=== PATIENT | female | born 1945 | race Asian ===

== ENCOUNTER → 2017-10-15 | Day surgery (SDC) | payer OTHER ==
--- NOTE | 2017-10-16 10:47 | PATH ---
Surgical Pathology Report Patient Name: YUMIKO GARCIA [facility]. Rec. #: [id number] /Age/Gender: 1945 (Age: 71) / F Account: [id number] Location: [facility] Taken: 10/15/2017 Received: 10/15/2017 Reported: 10/16/2017 Physicians: Cholo Granados M.D. Specimen(s) Received A: RIGHT BREAST BIOPSY WITH CALCIFICATIONS B: RIGHT BREAST BIOPSY WITHOUT CALCIFICATIONS Clinical History Nonpalpable lesion Mammograph findings: Microcalcification, suspicious Final Diagnosis A. BREAST, RIGHT, WITH CALCIFICATIONS, STEREOTACTIC CORE BIOPSY: DUCTAL CARCINOMA IN SITU, SOLID AND CRIBRIFORM TYPE, LOW NUCLEAR GRADE WITH ASSOCIATED MICROCALCIFICATIONS. B. BREAST, RIGHT, WITHOUT CALCIFICATIONS, STEREOTACTIC CORE BIOPSY: BREAST TISSUE WITH FOCAL STROMAL FIBROSIS AND MICROCALCIFICATIONS WITHIN BENIGN DUCTS. Comment: Part A, Breast prognostic markers are pending and will be reported as an addendum. Electronically Signed Radha Wellington M.D. Addendum Reported: 10/20/2017 Addendum Diagnosis Results of Estrogen Receptor (ER) and Progesterone Receptor (NC) studies performed on block "1" at [facility] are as follows: ER (clone [id number] mouse monoclonal antibody by Leica):90% nuclear staining with strong intensity (Positive). NC (clone16 mouse monoclonal antibody by Leica): up to 40% nuclear staining with moderate to strong intensity (Positive). Positive and negative controls (internal if applicable) show appropriate results. Formalin fixation and cold ischemic times are within current ASCO/CAP recommendations for ER, NC and Her2 testing. Radha Wellington M.D. Gross Description A. Received in formalin labeled "right breast with calcifications," are 3 chiang-yellow, cylindrical portions of fibroadipose tissue ranging from 1.5-3.4 cm in length and averaging 0.2 cm in diameter. The specimens are submitted in toto in one cassette. B. Received in formalin labeled "right breast without calcifications," is a 2.2 x 2.1 x 0.3 cm aggregate of multiple chiang-yellow, irregular to cylindrical portions of fibroadipose tissue. The formalin is filtered and the specimen is entirely submitted in one cassette. Time to formalin fixation: 5 minutes Total formalin fixation time: Approximately 8 hours. 10/15/201710/15/2017
== END | disposition home or self-care (01) ==
LOC: FMAMMOTONE 09:22
PROVIDERS: ATTEND Internal Medicine Endocrinology, Diabetes & Metabolism
PROC: 0HBT3ZX Excision of Right Breast, Percutaneous Approach, Diagnostic (ICD-10-PCS; principal; 2017-10-15)
DX: C50.411 Malignant neoplasm of upper-outer quadrant of right female breast (principal); R92.1 Mammographic calcification found on diagnostic imaging of breast; N60.31 Fibrosclerosis of right breast; N64.89 Other specified disorders of breast
CPT/HCPCS: 19081; 87899; 88305-TC; 88341-TC; 88342-TC; A4648

== ENCOUNTER 2017-12-01 06:56 | Day surgery (SDC) | payer OTHER ==
--- NOTE | 2017-11-23 14:07 | HP ---
Admitting History and Physical - Primary Care Physician PCP: Claudia Hugo - Admission Chief Complaint: right breast cancer History of Present Illness: 72 yo female noted to have right breast UOQ calcifications on screening mammo ( 08/2017). Right stereo core bx was c/w low grade ER/CO + DCIS. Patient is now presenting for right breast WE with NL. History Source: Patient Limitations to Obtaining History: No Limitations - Past Medical History Cardiovascular: Yes: HTN Musculoskeletal: Yes: Other (Gout) Endocrine: Yes: Hypothyroidism Home Medications - Allergies Allergies/Adverse Reactions: Allergies Allergy/AdvReac Type Severity Reaction Status Date / Time streptomycin Allergy Verified 11/23/17 14:05 - Home Medications Home Medications (free text): amlodipine. atorvastatin. levothyroxin. allopurinol. propanolol. Vitamin B Family Disease History - Family Disease History Family Disease History: CA: Sister (thyroid cancer at 60), Daughter (uterine cancer at 47) Other Family History: paternal cousin brest cancer at 50 Review of Systems - Review of Systems Constitutional: reports: Other (fatigue and insomnia) Musculoskeletal: reports: Back Pain, Muscle Pain, Other (neck pain) Physical Examination Constitutional: Yes: Well Nourished Cardiovascular: Yes: WNL Respiratory: Yes: WNL Breast(s): Yes: Other (symmetrical and diffusely nodular without palpable masses or suspicious adenopathy noted bilaterally) Problem List - Problems (1) Breast cancer, right Code(s): C50.911 - MALIGNANT NEOPLASM OF UNSP SITE OF RIGHT FEMALE BREAST Qualifiers: Breast location: upper outer quadrant of breast Estrogen receptor status: positive Patient sex: female Qualified Code(s): C50.411 - Malignant neoplasm of upper-outer quadrant of right female breast; Z17.0 - Estrogen receptor positive status [ER+]; Z17.0 - Estrogen receptor positive status [ER+] Assessment/Plan Plan: right breast WE with NL
[2017-12-01 08:32] VITALS: BMI 19.3
[2017-12-01] MEDS ORDERED: BUPIVACAINE HCL/PF 2.5 MG/ML - 30 ML VIAL IJ ONE (10:19)
[2017-12-01] MEDS ORDERED: LIDOCAINE HCL 1%, 10 MG/ML (20ML VIAL) ONE (10:19)
[2017-12-01] MEDS ORDERED: ONDANSETRON 4 MG/2 ML VIAL IVPUSH PRN (11:42)
[2017-12-01] MEDS ORDERED: KETOROLAC TROMETHAMINE 30 MG/1 ML VIAL IVPUSH PRN (11:42)
[2017-12-01] MEDS ORDERED: DEXTROSE 5%-0.45% SALINE 1,000 ML IV SCH (11:45)
[2017-12-01] MEDS ORDERED: oxyCODONE HCL 5 MG TABLET PO PRN (11:48)
[2017-12-01] MEDS ORDERED: LACTATED RINGERS SOLUTION 1,000 ML IV SCH (12:00)
[2017-12-01] MEDS ORDERED: ONDANSETRON 4 MG/2 ML VIAL ONE ×2 (12:10→18:41)
[2017-12-01] MEDS ORDERED: KETOROLAC TROMETHAMINE 30 MG/1 ML VIAL ONE (12:10)
--- NOTE | 2017-12-01 13:13 | OP ---
DATE OF OPERATION: 12/01/2017 PREOPERATIVE DIAGNOSIS: Right breast ductal carcinoma in situ. POSTOPERATIVE DIAGNOSIS: Right breast ductal carcinoma in situ. PROCEDURE: Mammographically localized partial mastectomy with complex tissue transfer. ANESTHESIA: General intubated. ATTENDING SURGEON: Morena Hugo MD ONCOLOGY PHYSICIAN ASSISTANT: DOMINGA Morgan ESTIMATED BLOOD LOSS: Minimal. COMPLICATIONS: None. DESCRIPTION OF PROCEDURE: Patient was made aware of the risks and benefits of the procedure. Preoperatively, the patient went to the radiology suite where a needle was placed next to the index lesion. Patient was then placed in the supine position on the operating room table, and after general anesthesia was induced, the patient was intubated. The operative site was prepped and draped in usual sterile fashion. Next, 1% lidocaine mixed in a 1:1 ratio with 0.25% bupivacaine without epinephrine was used for preemptive anesthesia. A curvilinear para-areolar incision was made at approximately 12 o'clock. Using electrocautery, thick skin flaps were made to the needle. The needle was withdrawn through the puncture site and a wire through the wound. Tissues around the wire were then sharply excised and submitted with a short suture superior, long suture lateral. Specimen radiograph confirmed the presence of the index lesion. Additional segments were taken superior, inferior, medial, lateral, deep, and anterior with clips at the new margins. Using electrocautery, the breast tissue was taken off the pectoralis muscle and approximately 6-8 cm in each direction and rotated into the defect which was then closed with multiple layers of figure-of-8 suture of 2-0 Vicryl in a scaffolding-type fashion. Skin was then closed with deep 3-0 Vicryl, followed by running subcuticular 4-0 Monocryl. Steri-Strips and a sterile bandage were then applied as well as a compression bra. The patient, having tolerated the procedure well, was transferred to recovery room in excellent condition. MORENA HUGO M.D. [id number]
[2017-12-01] MEDS ORDERED: ACETAMINOPHEN 325 MG TABLET (FP) PO ONE (13:25)
[2017-12-01] MEDS ORDERED: PROPOFOL 20 ML ONE (17:44)
[2017-12-01] MEDS ORDERED: MIDAZOLAM HCL 2 MG/2 ML SINGLE DOSE VIAL ONE (17:46)
[2017-12-01] MEDS ORDERED: PHENYLEPHRINE HCL 10 MG/1 ML SINGLE DOSE VIAL ONE (18:08)
[2017-12-02 06:34] VITALS: BP 104/50; PULSE 84; TEMP 98.1
--- NOTE | 2017-12-02 07:49 | OP ---
DATE OF OPERATION: 12/01/2017 PREOPERATIVE DIAGNOSIS: Right breast postoperative hematoma. POSTOPERATIVE DIAGNOSIS: Right breast postoperative hematoma. PROCEDURE: Evacuation of hematoma. ANESTHESIA: General intubated. ATTENDING SURGEON: Claudia Hugo MD ESTIMATED BLOOD LOSS: Minimal. COMPLICATIONS: None. DESCRIPTION OF PROCEDURE: Patient was made aware of the risks and benefits of the procedure and consented. She was placed in the supine position. After general anesthesia was induced, the patient was intubated. The operative site was prepped and draped in the usual sterile fashion. The prior incisions were cut, and the wound opened, revealing copious amounts of clotted blood. This was all evacuated directly and through irrigation. There was no obvious bleeding source, and small bleeding areas were cauterized throughout the wound. When the area was completely dry with no more bleeding, the prior reconstruction was reapposed with 2-0 Vicryl sutures followed by deep dermal 3-0 interrupted Vicryl sutures followed by running subcuticular 4-0 Monocryl. Steri-Strips, sterile dressings, and 2 David wraps were applied. The patient having tolerated the procedure was extubated and transferred to the recovery room in excellent condition. CLAUDIA HUGO M.D. [id number]
--- NOTE | 2017-12-02 09:35 | PN ---
Progress Note, Physician Chief Complaint: Right breast DCIS S/P wide excision with re excision from hematoma POD #1 History of Present Illness: Patient has some pain from evacuated hematoma , binder and wrap on, some indigestion after eating and nausea but resolved with zofran.Ready for discharge later after social service evaluation. vital signs stable - Current Medication List Current Medications: Active Medications Dextrose/Sodium Chloride (D5-1/2ns -) 1,000 mls @ 100 mls/hr IV ASDIR HILARIO Lactated Ringer's (Lactated Ringers Solution) 1,000 mls @ 125 mls/hr IV ASDIR HILARIO Ketorolac Tromethamine (Toradol Injection -) 30 mg IVPUSH ONCE PRN PRN Reason: PAIN Stop: 12/06/17 11:41 Last Admin: 12/01/17 12:12 Dose: 30 mg Ondansetron HCl (Zofran Injection) 4 mg IVPUSH Q6H PRN PRN Reason: NAUSEA AND/OR VOMITING Last Admin: 12/01/17 12:12 Dose: 4 mg Oxycodone HCl (Roxicodone -) 5 mg PO Q4H PRN PRN Reason: Pain Level > 4 - Objective Vital Signs: Vital Signs Temperature 98.1 F 12/02/17 06:32 Pulse Rate 84 12/02/17 06:32 Respiratory Rate 18 12/02/17 06:32 Blood Pressure 104/50 12/02/17 06:32 O2 Sat by Pulse Oximetry (%) 98 12/02/17 06:32 Constitutional: Yes: Anxious Breast(s): Yes: Other (Right breast incision intact some tenderness minimal echymosis right breast and axilla minimal swelling) Problem List - Problems (1) Breast cancer, right Code(s): C50.911 - MALIGNANT NEOPLASM OF UNSP SITE OF RIGHT FEMALE BREAST Qualifiers: Breast location: upper outer quadrant of breast Estrogen receptor status: positive Patient sex: female Qualified Code(s): C50.411 - Malignant neoplasm of upper-outer quadrant of right female breast; Z17.0 - Estrogen receptor positive status [ER+]; Z17.0 - Estrogen receptor positive status [ER+] Assessment/Plan patient discharge today social service evaluation tylenol prn follow up thursday for wound check
[2017-12-02] MEDS ORDERED: ACETAMINOPHEN 325 MG TABLET (FP) PO ONE (10:00)
--- NOTE | 2017-12-04 13:37 | PATH ---
Surgical Pathology Report Patient Name: YUMIKO GARCIA [facility]. Rec. #: [id number] /Age/Gender: 1945 (Age: 72) / F Account: [id number] Location: [facility] Taken: 12/01/2017 Received: 12/01/2017 Reported: 12/04/2017 Physicians: Claudia Hugo M.D. Specimen(s) Received A: RIGHT BREAST WIDE EXCISION B: RIGHT BREAST DEEP MARGIN C: RIGHT BREAST SUPERIOR MARGIN D: RIGHT BREAST MEDIAL MARGIN E: RIGHT BREAST INFERIOR MARGIN F: RIGHT BREAST LATERAL MARGIN G: RIGHT BREAST ANTERIOR MARGIN Clinical History DCIS Final Diagnosis A. BREAST, RIGHT, WIDE EXCISION: DUCTAL CARCINOMA IN SITU (DCIS), CRIBRIFORM AND SOLID TYPE, LOW NUCLEAR GRADE WITH FOCAL NECROSIS AND ASSOCIATED CALCIFICATIONS. DCIS IS PRESENT IN TWO OF SEVEN SLIDES (2/7), WITH THE LARGEST CONTIGUOUS FOCUS OF DCIS MEASURING 4 MM IN GREATEST DIMENSION, MICROSCOPICALLY. SURGICAL MARGINS ARE UNINVOLVED BY DCIS; DCIS IS AT 4 MM FROM THE CLOSEST (LATERAL) MARGIN. SEE SPECIMENS B-G FOR FINAL MARGINS. PRIOR BIOPSY SITE CHANGES ARE PRESENT. PATHOLOGIC STAGE (PTNM): pTis (DCIS) pNx. B. BREAST, RIGHT, DEEP MARGIN, EXCISION: FOCAL ATYPICAL DUCTAL HYPERPLASIA (ADH). C. BREAST, RIGHT, SUPERIOR MARGIN, EXCISION: BENIGN BREAST TISSUE. D. BREAST, RIGHT, MEDIAL MARGIN, EXCISION: BENIGN BREAST TISSUE. E. BREAST, RIGHT, INFERIOR MARGIN, EXCISION: BENIGN BREAST TISSUE. F. BREAST, RIGHT, LATERAL MARGIN, EXCISION: BENIGN BREAST TISSUE. G. BREAST, RIGHT, ANTERIOR MARGIN, EXCISION: BENIGN BREAST TISSUE. Comments DCIS of the Breast: Surgical Pathology Cancer Case Summary (Based on AJCC TNM 8 th edition) Procedure _X_ Excision (less than total mastectomy) Specimen Laterality _X_ Right Size (Extent) of DCIS Estimated size (extent) of DCIS (greatest dimension using gross and microscopic evaluation): at least (millimeters) 4 mm Number of blocks with DCIS: 2 Number of blocks examined: 23 (based on specimens A-G) Histologic Type _X_ Ductal carcinoma in situ Architectural Patterns _X_ Cribriform _X_ Solid Nuclear Grade _X_ Grade I (low) Necrosis _X_ Present, focal (small foci or single cell necrosis) Margins _X_ Uninvolved by DCIS Distance from closest margin (millimeters): 4 mm from lateral margin in wide excision A. Final lateral margin F is negative for DCIS. Regional Lymph Nodes _X_ No lymph nodes submitted or found Pathologic Stage Classification (pTNM, AJCC 8th Edition) Primary Tumor (pT) _X_ pTis (DCIS): Ductal carcinoma in situ (pN) : _X_ pNx Microcalcifications _X_ Present in DCIS _X_ Present in nonneoplastic tissue Biomarker studies Results of ER and PA studies performed on prior specimen () at [facility] are as follows: ER (clone [id number] mouse monoclonal antibody by Leica): 90 % nuclear staining with strong intensity (Positive). PA (clone16 mouse monoclonal antibody by Leica): 40 % nuclear staining with moderate to strong intensity (Positive). Electronically Signed Michela Julio M.D. Gross Description A. Received in formalin, labeled "right breast wide excision," is a 4.7 x 3.1 x 3.0 cm. chiang-yellow, irregular, portion of fibroadipose tissue with a needle localization wire present. There is a short suture marking the superior aspect and a long suture marking the lateral aspect, per the surgeon. There is no skin or nipple present. The specimen is inked as follows: Superior blue; inferior green; anterior and lateral red; medial yellow; deep black. The specimen is serially sectioned from anterior to deep. Sectioning reveals a 1.5 x 1.4 x 1.2 cm ill-defined focus of firm fibrous tissue 0.3 cm from the lateral margin, 0.6 cm from the inferior margin and 0.8 cm from the medial margin. Investigator Operator sections are submitted in 7 cassettes as follows: 1-4-fibrous tissue sequentially submitted from anterior to deep (each with lateral, medial and inferior margins); 5-superior margin; 6-anterior margin; 7-deep margin. Time to formalin fixation: 5 minutes Total formalin fixation time: Approximately 31 hours. B. Received in formalin labeled "right breast deep margin," is a 3.2 x 2.2 x 1.9 cm irregular portion of fibroadipose tissue with a clip marking the new margin, per the surgeon. The new margin is inked blue and the specimen is serially sectioned. The specimen is entirely and sequentially submitted in 4 cassettes. C. Received in formalin labeled "right breast superior margin," is a 2.5 x 1.9 x 0.7 cm irregular portion of fibroadipose tissue with a clip marking the new margin, per the surgeon. The new margin is inked blue and the specimen is serially sectioned. The specimen is entirely submitted in 3 cassettes. D. Received in formalin labeled "right breast medial margin," is a 2.0 x 1.4 x 0.5 cm irregular portion of fibroadipose tissue with a clip marking the new margin, per the surgeon. The new margin is inked blue and the specimen is serially sectioned. The specimen is entirely submitted in 2 cassettes. E. Received in formalin labeled "right breast inferior margin," is a 2.7 x 1.5 x 0.3 cm irregular portion of fibroadipose tissue with a clip marking the new margin, per the surgeon. The new margin is inked blue and the specimen is serially sectioned. The specimen is entirely submitted in 3 cassettes. F. Received in formalin labeled "right breast lateral margin," is a 2.5 x 1.0 x 0.3 cm irregular portion of fibroadipose tissue with a clip marking the new margin, per the surgeon. The new margin is inked blue and the specimen is serially sectioned. The specimen is entirely submitted in 2 cassettes. G. Received in formalin labeled "right breast anterior margin" and a 2.0 x 1.3 x 0.5 cm irregular portion of fibroadipose tissue with a clip marking the new margin, per the surgeon. The new margin is inked blue and the specimen is serially sectioned. The specimen is entirely submitted in 2 cassettes. 12/02/2017 saudi12/02/2017
== END 2017-12-02 12:18 | disposition home or self-care (01) ==
LOC: FASU 06:56 → FM/S 20:47 → FASU 12-02 12:18
PROVIDERS: ATTEND Surgery Surgical Oncology
PROC: 0H9T0ZZ Drainage of Right Breast, Open Approach (ICD-10-PCS; 2017-12-01)
PROC: 0HBT0ZZ Excision of Right Breast, Open Approach (ICD-10-PCS; principal; 2017-12-01 10:00)
DX: D05.11 Intraductal carcinoma in situ of right breast (principal); L76.32 Postprocedural hematoma of skin and subcutaneous tissue following other procedure; N64.89 Other specified disorders of breast
CPT/HCPCS: 19281; 82962; 88307-TC; 94760

== ENCOUNTER 2018-12-27 15:35 | Observation (INO) | payer MEDICARE, OTHER ==
[2018-12-27 16:35] LABS: URINE APPEARANCE Clear; URINE BILIRUBIN Negative (<2.0 mg/dL); URINE COLOR Yellow; URINE GLUCOSE (UA) Negative (NEGATIVE); URINE KETONE Negative (NEGATIVE); URINE LEUK ESTERASE Negative (NEGATIVE); URINE NITRITE Negative (NEGATIVE); URINE PROTEIN Negative (NEGATIVE); URINE UROBILINOGEN 0.2 mg/dL (0.2-1.0)
[2018-12-27] MEDS ORDERED: ACETAMINOPHEN 1000 MG/100 ML VIAL (NON FORMULARY) IVPB ONE (16:47)
--- NOTE | 2018-12-27 16:56 | PDOC ---
History of Present Illness - General History Source: Patient Exam Limitations: No Limitations - History of Present Illness Initial Comments: 12/27/18 16:49 73 yo F with a hx of DCIS ER/NV+ right breast s/p lumpectomy (11/2017) and radiation (02/2018; followed by Dr. Mohan), HTN, HLD, hypothyroidism, and osteoporosis presents to the emergency department by referral from Dr. Duran with left chest pain for 3 days. Per the patient, onset of pain began while walking. Described as sharp, comes and goes with pain random onset lasting less than an hour, relieves with sitting up, rated 6/10 in severity with radiation to the left shoulder and arm. Per the patient, she has never had this beforehand. Endorses the following concurrent symptoms: SOB, epigastric pain nausea, and generalized weakness. Denies hx of ID. Positive familial hx of ID in 84 year old father. Denies the following: fever, chills,ears/nose/throat pain , headaches, FND, dysuria, hematuria, diarrhea, hematochezia, and leg pain/ swelling. No recent travels, hx of PE/DVT. 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,HAS USED) Cancer: Yes (RIGHT BREAST) Cardiac Disorders: Yes (SOMETIMES C/O CHEST PAIN,SEEING DR DYKES 11/25/17) CVA: No COPD: No (INHALER 3 YRS AGO) CHF: No Dementia: No Diabetes: No (BORDERLINE) GI Disorders: Yes (STOMACH ULCER 20 YRS AGO) Disorders: No HTN: Yes Hypercholesterolemia: Yes Liver Disease: No (FATTY LIVER) Seizures: No Thyroid Disease: Yes (2003 TOTAL THYROIDECTOMY) - Surgical History Abdominal Surgery: Yes (ABD MYOMECTOMY) Appendectomy: No Cardiac Surgery: No Cholecystectomy: No Lung Surgery: No Neurologic Surgery: No Orthopedic Surgery: No - Suicide/Smoking/Psychosocial Hx Smoking History: Never smoked Have you smoked in the past 12 months: No Information on smoking cessation initiated: No Hx Alcohol Use: No Drug/Substance Use Hx: No Substance Use Type: None Hx Substance Use Treatment: No <Manuelito Iglesias - Last Filed: 12/28/18 10:54> <AldanaAmyKayla Renetta - Last Filed: 12/30/18 10:15> - Past Medical History Allergies/Adverse Reactions: Allergies Allergy/AdvReac Type Severity Reaction Status Date / Time streptomycin Allergy Severe Difficulty Verified 12/27/18 15:43 Breathing Home Medications: Ambulatory Orders Allopurinol [Zyloprim -] 100 mg PO DAILY 12/28/18 Amlodipine Besylate [Norvasc -] 5 mg PO DAILY 12/28/18 Levothyroxine [Synthroid -] 50 mcg PO DAILY 12/28/18 Propranolol HCl [Inderal Xl] 120 mg PO DAILY 12/28/18 Simvastatin [Zocor] 10 mg PO HS 12/28/18 metFORMIN HCL [Metformin HCl] 500 mg PO ASDIR 12/28/18 Review of Systems - Review of Systems Able to Perform ROS?: Yes Is the patient limited Romansh proficient: No Constitutional: Yes: Weakness. No: Chills, Diaphoresis, Fever HEENTM: No: Eye Pain, Recent change in vision, Nose Pain, Throat Pain, Mouth Pain Respiratory: Yes: Shortness of Breath. No: Cough, Productive cough Cardiac (ROS): Yes: Chest Pain. No: Lightheadedness, Palpitations, Syncope, Chest Tightness ABD/GI: Yes: Nausea, Poor Appetite. No: Constipated, Diarrhea, Vomiting : No: Hematuria Musculoskeletal: No: Back Pain, Joint Pain, Muscle Pain, Neck Pain Integumentary: No: Erythema, Rash Neurological: No: Headache, Numbness, Tingling, Tremors, Dizziness Psychiatric: No: Change in Appetite Endocrine: No: Unexplained Weight Gain Hematologic/Lymphatic: No: Anemia <Manuelito Iglesias - Last Filed: 12/28/18 10:54> *Physical Exam - Vital Signs Last Vital Signs Temp Pulse Resp BP Pulse Ox 98.7 F 87 18 141/58 L 100 12/27/18 15:44 12/27/18 15:44 12/27/18 15:44 12/27/18 15:44 12/27/18 15:44 - Physical Exam General Appearance: Yes: Nourished, Appropriately Dressed, Thin. No: Apparent Distress, Intoxicated, Cachetic HEENT: positive: EOMI, DAWN, Normal Voice, Symmetrical, Pharynx Normal, Hearing Grossly Normal. negative: Pale Conjunctivae, Scleral Icterus (R), Scleral Icterus (L), Muffled/Hoarse voice, Pharyngeal Erythema, Tonsillar Exudate, Tonsillar Erythema, Excessive drooling Neck: positive: Trachea midline, Supple. negative: Tender, Lymphadenopathy (R) , Lymphadenopathy (L), Tender lateral, Tender midline Respiratory/Chest: positive: Lungs Clear, Normal Breath Sounds. negative: Chest Tender, Respiratory Distress, Accessory Muscle Use, Stridor, Wheezing, Hyperresonant Cardiovascular: positive: Regular Rhythm, Regular Rate, S1, S2. negative: Systolic Murmur Gastrointestinal/Abdominal: positive: Normal Bowel Sounds, Tender (epigastric region), Flat, Soft. negative: Guarding, Rebound Musculoskeletal: positive: Normal Inspection. negative: CVA Tenderness, Vertebral Tenderness Extremity: positive: Normal Capillary Refill, Normal Inspection, Normal Range of Motion. negative: Tender Integumentary: positive: Normal Color, Dry, Warm. 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 NML intact, Fully Oriented, Alert, Normal Mood/ Affect, Normal Response, Motor Strength 5/5 <Manuelito Iglesias - Last Filed: 12/28/18 10:54> - Vital Signs Last Vital Signs Temp Pulse Resp BP Pulse Ox 99.0 F 92 H 20 118/64 98 12/29/18 15:08 12/29/18 15:08 12/29/18 15:08 12/29/18 15:08 12/29/18 04:00 <Kayla Aldana - Last Filed: 12/30/18 10:15> Moderate Sedation - Procedure Monitoring Vital Signs: Procedure Monitoring Vital Signs Temperature 98.7 F 12/27/18 15:44 Pulse Rate 87 12/27/18 15:44 Respiratory Rate 18 12/27/18 15:44 Blood Pressure 141/58 L 12/27/18 15:44 O2 Sat by Pulse Oximetry (%) 100 12/27/18 15:44 <Manuelito Iglesias - Last Filed: 12/28/18 10:54> - Procedure Monitoring Vital Signs: Procedure Monitoring Vital Signs Temperature 99.0 F 12/29/18 15:08 Pulse Rate 92 H 12/29/18 15:08 Respiratory Rate 20 12/29/18 15:08 Blood Pressure 118/64 12/29/18 15:08 O2 Sat by Pulse Oximetry (%) 98 12/29/18 04:00 <KatyaKayla Jackson - Last Filed: 12/30/18 10:15> Heart Score/ECG Review - History History: Slightly suspicious - Electrocardiogram EKG: Normal - Age Age: >/= 65 - Risk Factors Risk Factors Heart Score: Yes Hx Hypercholesterolemia, Yes Hx Hypertension, Yes Hx Diabetes Based on the list above the patient has:: >/=3 risk factors or Hx atherosclerotic disease - Troponin Troponin: </= normal limit - Score Heart Score - Total: 4 <Manuelito Iglesias - Last Filed: 12/28/18 10:54> ED Treatment Course - LABORATORY CBC & Chemistry Diagram: 12/28/18 06:00 12/28/18 06:45 - ADDITIONAL ORDERS Additional order review: Laboratory Results 12/27/18 16:03 Urine Color Yellow Urine Appearance Clear Urine pH 8.0 D Ur Specific [place] 1.010 Urine Protein Negative Urine Glucose (UA) Negative Urine Ketones Negative Urine Blood 1+ H Urine Nitrite Negative Urine Bilirubin Negative Urine Urobilinogen 0.2 Ur Leukocyte Esterase Negative - RADIOLOGY Radiology Studies Ordered: Category Date Time Status CHEST PA & LAT [RAD] Stat Radiology 12/27/18 16:47 Ordered <Manuelito Iglesias - Last Filed: 12/28/18 10:54> - LABORATORY CBC & Chemistry Diagram: 12/28/18 06:00 12/28/18 06:45 - ADDITIONAL ORDERS Additional order review: 12/27/18 16:03 Urine Culture - Final Urine - Urine Clean Catch NO GROWTH OBTAINED 12/27/18 17:14 RBC 4.25 MCV 93.4 MCHC 35.1 RDW 12.6 MPV 8.7 Neutrophils % 74.2 D Lymphocytes % 17.0 D Monocytes % 6.7 Eosinophils % 0.9 Basophils % 1.2 - Medications Given in the ED: ED Medications Discontinued Medications Generic Name Dose Route Start Last Admin Trade Name Freq PRN Reason Stop Dose Admin Acetaminophen 1,000 mg 12/27/18 16:47 12/27/18 17:22 Ofirmev Injection - IVPB 12/27/18 16:48 1,000 mg ONCE ONE Administration Al Hydroxide/Mg Hydroxide 30 ml 12/27/18 17:02 12/27/18 17:22 Mylanta Oral Suspension - PO 12/27/18 17:03 30 ml ONCE ONE Administration Allopurinol 100 mg 12/28/18 10:00 12/29/18 12:58 Zyloprim - PO 100 mg DAILY HILARIO Administration Amlodipine Besylate 5 mg 12/28/18 10:00 12/29/18 12:58 Norvasc - PO 5 mg DAILY HILARIO Administration Aspirin 162 mg 12/27/18 18:29 12/27/18 18:39 Asa - PO 12/27/18 18:30 Not Given ONCE ONE Aspirin 81 mg 12/28/18 10:00 12/29/18 12:58 Asa - PO 81 mg DAILY HILARIO Administration Atorvastatin Calcium 10 mg 12/28/18 22:00 12/28/18 22:28 Lipitor - PO 10 mg HS HILARIO Administration Cephalexin HCl 500 mg 12/27/18 18:31 12/27/18 18:40 Keflex - PO 12/27/18 18:32 500 mg ONCE ONE Administration Enoxaparin Sodium 40 mg 12/28/18 10:00 12/29/18 13:01 Lovenox - SQ Not Given DAILY [facility] Sodium Chloride 1,000 mls @ 1,000 mls/hr 12/27/18 17:01 12/27/18 17:22 Normal Saline - IV 12/27/18 18:00 1,000 mls/hr ASDIR STA Administration Famotidine/Sodium Chloride 20 mg in 50 mls @ 100 mls/hr 12/27/18 17:02 18:40 Pepcid 20 Mg Premixed Ivpb - IVPB 12/27/18 17:31 100 mls/hr ONCE ONE Administration Levothyroxine Sodium 50 mcg 12/28/18 07:00 12/29/18 06:26 Synthroid - PO 50 mcg DAILY@0700 HILARIO Administration Melatonin 5 mg 12/28/18 21:39 12/28/18 22:28 Melatonin PO 5 mg HS PRN Administration INSOMNIA Ondansetron HCl 4 mg 12/27/18 17:02 12/27/18 17:22 Zofran Injection IVPUSH 12/27/18 17:03 4 mg ONCE ONE Administration Propranolol HCl 120 mg 12/28/18 10:00 12/29/18 12:58 Inderal La - PO 120 mg DAILY HILARIO Administration <Kayla Aldana - Last Filed: 12/30/18 10:15> Medical Decision Making - Medical Decision Making 12/27/18 21:10 73 yo F with a hx of DCIS ER/NV+ right breast s/p lumpectomy (11/2017) and radiation (02/2018; followed by Dr. Mohan), HTN, HLD, hypothyroidism, and osteoporosis presents to the emergency department by referral from Dr. Duran with left chest pain for 3 days. Initial vitals Initial Vital Signs Temp Pulse Resp BP Pulse Ox 98.7 F 87 18 141/58 L 100 12/27/18 15:44 12/27/18 15:44 12/27/18 15:44 12/27/18 15:44 12/27/18 15:44 Work up: ddx: acs work up vs PNA vs PE (hx of cancer, describes pleuritic chest like pain left side, SOB, unable to assess with d-dimer given age, hx of CA), pericarditis (hx of radiation) Laboratory Tests 12/27/18 12/27/18 12/27/18 16:03 17:14 17:14 WBC 6.3 RBC 4.25 Hgb 13.9 Hct 39.7 MCV 93.4 MCH 32.8 MCHC 35.1 RDW 12.6 Plt Count 229 MPV 8.7 Absolute Neuts (auto) 4.6 Neutrophils % 74.2 D Lymphocytes % 17.0 D Monocytes % 6.7 Eosinophils % 0.9 Basophils % 1.2 Nucleated RBC % 0 Sodium 141 Potassium 3.8 Chloride 108 H Carbon Dioxide 26 Anion Gap 7 L BUN 15 Creatinine 0.5 L Creat Clearance w eGFR > 60 Random Glucose 108 H Calcium 9.5 Total Bilirubin 0.3 AST 25 ALT 35 Alkaline Phosphatase 96 Creatine Kinase 61 Troponin I < 0.02 Total Protein 7.4 Albumin 3.8 Lipase 237 Urine Color Yellow Urine Appearance Clear Urine pH 8.0 D Ur Specific [place] 1.010 Urine Protein Negative Urine Glucose (UA) Negative Urine Ketones Negative Urine Blood 1+ H Urine Nitrite Negative Urine Bilirubin Negative Urine Urobilinogen 0.2 Ur Leukocyte Esterase Negative Urine WBC (Auto) 0-3 Urine RBC (Auto) 0-3 Ur Epithelial Cells 1+ Urine Bacteria 1+ Urine Mucus 2+ CTA was negative for PE, infiltrates. EKG NSR without st elevation or depression. stress test and echo grossly within normal limits done 1-2 years ago. troponin x2 negative. the patient has symptomatic improvement but residual chest pain after having GI cocktail with tylenol and famotidine. nausea improved with zofran. patient was given keflex in the ED for bacteria in the urine in the setting of generalized weakness. the patient will be admitted for tele obs. Dispo: Admit to tele obs <Manuelito Iglesias - Last Filed: 12/28/18 10:54> *DC/Admit/Observation/Transfer <Manuelito Iglesias - Last Filed: 12/28/18 10:54> - Discharge Dispostion Decision to Admit order: Yes <Kayla Aldana - Last Filed: 12/30/18 10:15> Diagnosis at time of Disposition: Chest pain Qualifiers: Chest pain type: unspecified Qualified Code(s): R07.9 - Chest pain, unspecified - Discharge Dispostion Condition at time of disposition: Good
[2018-12-27] MEDS ORDERED: SODIUM CHLORIDE 1,000 ML IV STA (17:01)
[2018-12-27] MEDS ORDERED: ONDANSETRON 4 MG/2 ML VIAL IVPUSH ONE (17:02)
[2018-12-27] MEDS ORDERED: FAMOTIDINE 20 MG/50 ML IVPB 20 MG/50 ML MG IVPB ONE ×2 (17:02→17:10)
[2018-12-27] MEDS ORDERED: MAG HYDROX/AL HYDROX/SIMETH 30 ML UNIT-DOSE CUP PO ONE (17:02)
[2018-12-27] MEDS ORDERED: MAG HYDROX/AL HYDROX/SIMETH 30 ML UNIT-DOSE CUP ONE (17:10)
[2018-12-27] MEDS ORDERED: ACETAMINOPHEN INJECTION 100 ML IVPB ONE (17:10)
[2018-12-27] MEDS ORDERED: ONDANSETRON 4 MG/2 ML VIAL ONE (17:10)
[2018-12-27 17:31] LABS: BASO % 1.2 % (0-2.0); EOS % 0.9 % (0-4.5); HEMATOCRIT 39.7 % (32.4-45.2); HEMOGLOBIN 13.9 GM/dL (10.7-15.3); MCH 32.8 pg (25.7-33.7); MCHC 35.1 g/dl (32.0-36.0); MEAN CELL VOLUME 93.4 fl (80-96); MEAN PLT VOLUME 8.7 fl (7.5-11.1); MONO % 6.7 % (3.8-10.2); NEUT % 74.2 % (42.8-82.8); PLATELET COUNT 229 K/MM3 (134-434); RBC 4.25 M/mm3 (3.60-5.2); RDW 12.6 % (11.6-15.6); WHITE BLOOD COUNT 6.3 K/mm3 (4.0-10.0)
[2018-12-27 17:51] LABS: EPI CELLS 1+ /HPF (FEW)
[2018-12-27 17:52] LABS: URINE BACTERIA 1+ /hpf (NONE SEEN); URINE MUCUS 2+
[2018-12-27 18:16] LABS: ALBUMIN 3.8 g/dl (3.4-5.0); ALK PHOS 96 U/L (45-117); ANION GAP 7 MMOL/L (8-16); BILIRUBIN,TOTAL 0.3 mg/dL (0.2-1); BLOOD UREA NITROGEN 15 mg/dL (7-18); CALCIUM 9.5 mg/dL (8.5-10.1); CHLORIDE 108 mmol/L (98-107); CO2 26 mmol/L (21-32); CREATININE 0.5 mg/dL (0.55-1.3); GLUCOSE,RANDOM 108 mg/dL (74-106); LIPASE 237 U/L (73-393); POTASSIUM 3.8 mmol/L (3.5-5.1); SGOT/AST 25 U/L (15-37); SGPT/ALT 35 U/L (13-61); SODIUM 141 mmol/L (136-145); TOT PROT 7.4 g/dl (6.4-8.2)
--- NOTE | 2018-12-27 18:23 | PDOC ---
Attending Attestation - Resident Resident Name: KelsieManuelito - ED Attending Attestation I have performed the following: I have examined & evaluated the patient, The case was reviewed & discussed with the resident, I agree w/resident's findings & plan - HPI HPI: 12/27/18 18:24 73 yo F with a hx of DCIS ER/RI+ right breast s/p lumpectomy and radiation (2018), HTN, HLD, hypothyroidism, and osteoporosis presents to the emergency department with left chest pain for 3 days, with walking. described as sharp, intermittent, pleuritic (worse with breathing), lasting <1 hour, improved with sitting up. currently left lateral chest, worse with palpation as well, occasional radiation to the left shoulder and arm.. also endorses generalized weakness and malaise. no trauma or exertion. no other precipitating/alleviating factors Endorses the following concurrent symptoms: SOB, epigastric pain nausea, and generalized weakness. Denies hx of DE. Positive familial hx of DE in 84 year old father. no h/o DVT/PE. last chemo treatment 1 year ago, in remission. 12/27/18 18:26 12/27/18 18:29 12/27/18 18:32 - Physicial Exam PE: 12/27/18 18:26 NAD, well appearing, PERRL, EOMI, MMM, nl conjunctiva, anicteric; neck supple. lungs clear, RRR, left lateral chest wall Tenderness to palp. abdomen soft nontender. EDGE x4, no focal neuro deficits. No peripheral edema. normal color for ethnicity, WWP. no calf tenderness. - Medical Decision Making 12/27/18 18:26 See HPI for details DDx chest pain: ACS, coronary vasospasm, NSTEMI, arrhythmia, unstable angina, PE , dissection, PUD, esophageal spasm, GERD, gastritis, costochondritis, pneumonia , pleurisy, pericarditis/myocarditis. dehydration, electrolyte/metabolic derangements. Vital signs reviewed, wnl. mildly hypertensive, recheck Prior notes reviewed, including admissions, discharges and consultations. laboratory results and imaging reviewed, basic labs and lytes wnl, UA_with bacteria, epis/mucus, small wbcs - treat as possible UTI - keflex Cardiac panel_neg trop x1. EKG normal sinus rhythm at 87 bpm, no interval abnormalities, narrow QRS, ST and T wave segments and morphology normal. Nonspecific T wave abnormalities ED course: no acute events; GI cocktail attempted, ASA, analgesia and reassess. on monitor CTA to r/o PE with pleuritic cp - negative for PE, no other pathology identified. heart score 4, moderate risk given age and some medical comorbidities. obs tele, ASA for cp. admit 12/27/18 18:29 Heart Score/ECG Review - History History: Slightly suspicious - Electrocardiogram EKG: Non specific repolarization disturbance - Age Age: >/= 65 - Risk Factors Risk Factors Heart Score: Yes Hx Hypercholesterolemia, Yes Hx Hypertension Based on the list above the patient has:: 1-2 risk factors - Troponin Troponin: </= normal limit - Score Heart Score - Total: 4 #1 ECG reviewed & interpreted by me at: 15:40 General ECG Interpretation: Sinus Rhythm Compared to previous ECG there are: No significant change 12/27/18 18:28 EKG normal sinus rhythm at 87 bpm, no interval abnormalities, narrow QRS, ST and T wave segments and morphology normal. Nonspecific T wave abnormalities
[2018-12-27] MEDS ORDERED: ASPIRIN 81 MG CHEWABLE TABLETS PO ONE (18:29)
[2018-12-27] MEDS ORDERED: CEPHALEXIN MONOHYDRATE 500 MG CAPSULE (UD) PO ONE (18:31)
[2018-12-27] MEDS ORDERED: CEPHALEXIN MONOHYDRATE 500 MG CAPSULE (UD) ONE (18:48)
--- NOTE | 2018-12-27 21:49 | HP ---
CHIEF COMPLAINT: intermittent chest and back pain for 3 weeks associated with shortness of breath at rest PCP:Dr. Howell Oven Operator Automatic: Dr. Meeks([facility]) Oncologist:Dr. Mohan Breast Surgeon: Dr. Arzate HISTORY OF PRESENT ILLNESS: 73 year old female with history of right breast cancer with lumpectomy and radiation therapy completed in February 2018, follows with Oncology-Dr. Mohan, hypertension, hyperlipidemia, hypothyroidism, and diabetes mellitus who presents with symptoms of intermittent chest discomfort with radiation to left arm and back associated with shortness of breath at rest for the past 3 weeks. She reports she is unable to lie flat and cannot catch her breath. She denies fever, cough ,nausea, vomiting abdominal pain, hemoptysis or lower extremity pain or swelling. She reports having a stress test several years ago but not recently. Upon evaluation in the ER she was found to have a negative CT angiogram of chest. Pulmonary embolism and aortic aneurysm was excluded. EKG showing no signs of acute ischemia. Initial troponin in normal. Urinalysis with with 1+ bacteria and blood, negative nitrite and leukoesterase, WBC 0-3. She was given one dosage of oral keflex. Urine culture is pending. She is being admitted to observation/telemetry for further cardiac evaluation. Recent Travel: Denies PAST MEDICAL HISTORY: right breast cancer with lumpectomy and radiation therapy completed February 2018 hypertension hyperlipidemia hypothyroidism diabetes mellitus PAST SURGICAL HISTORY: right breast lumpectomy and radiation therapy completed February 2018 Social History: Smoking:Denies Alcohol:Denies Drugs:Denies Family History: Father had MT in his 80's and . Mother of natural causes. Allergies streptomycin Allergy (Severe, Verified 12/27/18 15:43) Difficulty Breathing HOME MEDICATIONS: REVIEW OF SYSTEMS CONSTITUTIONAL: Absent: fever, chills, diaphoresis, generalized weakness, malaise, loss of appetite, weight change HEENT: Absent: rhinorrhea, nasal congestion, throat pain, throat swelling, difficulty swallowing, mouth swelling, ear pain, eye pain, visual changes CARDIOVASCULAR: Absent: chest pain, syncope, palpitations, irregular heart rate, lightheadedness , peripheral edema RESPIRATORY: Absent: cough, shortness of breath, dyspnea with exertion, orthopnea, wheezing, stridor, hemoptysis GASTROINTESTINAL: Absent: abdominal pain, abdominal distension, nausea, vomiting, diarrhea, constipation, melena, hematochezia GENITOURINARY: Absent: dysuria, frequency, urgency, hesitancy, hematuria, flank pain, genital pain MUSCULOSKELETAL: Absent: myalgia, arthralgia, joint swelling, upper back pain, neck pain SKIN: Absent: rash, itching, pallor HEMATOLOGIC/IMMUNOLOGIC: Absent: easy bleeding, easy bruising, lymphadenopathy, frequent infections ENDOCRINE: Absent: unexplained weight gain, unexplained weight loss, heat intolerance, cold intolerance NEUROLOGIC: Absent: headache, focal weakness or paresthesias, dizziness, unsteady gait, seizure, mental status changes, bladder or bowel incontinence PSYCHIATRIC: Absent: anxiety, depression, suicidal or homicidal ideation, hallucinations. PHYSICAL EXAMINATION Vital Signs - 24 hr 12/27/18 15:44 Temperature 98.7 F Pulse Rate 87 Respiratory 18 Rate Blood Pressure 141/58 L O2 Sat by Pulse 100 Oximetry (%) GENERAL: awake, alert, and fully oriented, no acute distress. HEAD: normal with no signs of trauma. EYES: pupils equal, round and reactive to light EARS, NOSE,Throat: ears normal, nares patent. NECK: normal range of motion, no JVD LUNGS: clear to auscultation bilaterally, no wheezes, and no crackles,no accessory muscle use. HEART: regular rate and rhythm, normal S1 and S2 without significant murmur. ABDOMEN: soft, nontender, not distended, normoactive bowel sounds. MUSCULOSKELETAL: no CVA tenderness. UPPER EXTREMITIES: 2+ pulses, warm, well-perfused. no cyanosis, no clubbing, no peripheral edema. LOWER EXTREMITIES: 2+ pulses, warm, well-perfused. no calf tenderness, no peripheral edema. NEUROLOGICAL: no neuro focal deficits, normal speech. PSYCHIATRIC: cooperative, good eye contact, appropriate mood and affect. SKIN: warm, dry, normal turgor, no rashes or lesions noted, normal capillary refill. Laboratory Results - last 24 hr 12/27/18 12/27/18 12/27/18 16:03 17:14 17:14 WBC 6.3 RBC 4.25 Hgb 13.9 Hct 39.7 MCV 93.4 MCH 32.8 MCHC 35.1 RDW 12.6 Plt Count 229 MPV 8.7 Absolute Neuts (auto) 4.6 Neutrophils % 74.2 D Lymphocytes % 17.0 D Monocytes % 6.7 Eosinophils % 0.9 Basophils % 1.2 Nucleated RBC % 0 Sodium 141 Potassium 3.8 Chloride 108 H Carbon Dioxide 26 Anion Gap 7 L BUN 15 Creatinine 0.5 L Creat Clearance w eGFR > 60 Random Glucose 108 H Calcium 9.5 Total Bilirubin 0.3 AST 25 ALT 35 Alkaline Phosphatase 96 Creatine Kinase 61 Troponin I < 0.02 Total Protein 7.4 Albumin 3.8 Lipase 237 Urine Color Yellow Urine Appearance Clear Urine pH 8.0 D Ur Specific [place] 1.010 Urine Protein Negative Urine Glucose (UA) Negative Urine Ketones Negative Urine Blood 1+ H Urine Nitrite Negative Urine Bilirubin Negative Urine Urobilinogen 0.2 Ur Leukocyte Esterase Negative Urine WBC (Auto) 0-3 Urine RBC (Auto) 0-3 Ur Epithelial Cells 1+ Urine Bacteria 1+ Urine Mucus 2+ ASSESSMENT/PLAN: Mrs. Suarez is a 73 year old female with history of right breast cancer with lumpectomy and radiation therapy completed in February 2018, follows with Oncologist Dr. Mohan, hypertension, hyperlipidemia, hypothyroidism, and diabetes mellitus who presents with symptoms of intermittent chest discomfort with radiation to left arm and back associated with shortness of breath at rest and orthopnea for the past [address] Pain CT angiogram of chest excluded pulmonary embolism and aortic aneurysm. EKG with no signs of acute ischemia. Initial troponin in normal. Continue to trend troponins. Added asa to medical regimen. Check BNP. Echocardiogram ordered to exclude radiation induced cardiomyopathy and or wall motion/valvular abnormalities. Cardiology consulted- Dr. Cox. Hypertension Controlled.Continue with amlodipine. Hyperlipidemia Check fasting lipid panel in am. LFT's normal. Continue with statin therapy. Diabetes Mellitus Accucheks before meals and at bedtime. Continue with metformin. Hypothyroidism Continue with synthroid. Check TSH. Abnormal UA Afebrile,no leukocytosis, urinalysis-1+ bacteria and blood,negative nitrite, leukoesterase, WBC 0-3. She was given one dosage of oral keflex. Urine culture is pending. FEN ADA,low sodium diet, DVT Prophylaxsis Lovenox 40 mg sq daily ordered. Visit type - Emergency Visit Emergency Visit: Yes ED Registration Date: 12/27/18 Care time: The patient presented to the Emergency Department on the above date and was hospitalized for further evaluation of their emergent condition. - New Patient This patient is new to me today: Yes Date on this admission: 12/28/18 - Critical Care Critical Care patient: No
[2018-12-28 01:09] LABS: CHOLESTEROL 157 mg/dL (50-200); HDL CHOLESTEROL 68 mg/dL (40-60); TRIGLYCERIDES 80 mg/dL (0-150)
[2018-12-28] MEDS ORDERED: LEVOTHYROXINE NA 25 MCG TABLET (FP) ONE (06:48)
[2018-12-28] MEDS: LEVOTHYROXINE NA 50 MCG TABLET (FP) PO SCH (06:53)
[2018-12-28 07:14] LABS: HEMOGLOBIN 13.2 GM/dL (10.7-15.3); MCH 32.4 pg (25.7-33.7); MCHC 34.8 g/dl (32.0-36.0); MEAN PLT VOLUME 8.5 fl (7.5-11.1); PLATELET COUNT 224 K/MM3 (134-434); RBC 4.08 M/mm3 (3.60-5.2); RDW 12.7 % (11.6-15.6)
[2018-12-28 07:42] LABS: ANION GAP 4 MMOL/L (8-16); BLOOD UREA NITROGEN 11 mg/dL (7-18); CALCIUM 8.7 mg/dL (8.5-10.1); CHLORIDE 112 mmol/L (98-107); CO2 27 mmol/L (21-32); CREATININE 0.6 mg/dL (0.55-1.3); GLUCOSE,RANDOM 86 mg/dL (74-106); MAGNESIUM 2.4 mg/dL (1.8-2.4); PHOSPHOROUS 3.1 mg/dL (2.5-4.9); POTASSIUM 3.6 mmol/L (3.5-5.1); SODIUM 143 mmol/L (136-145)
--- NOTE | 2018-12-28 09:56 | PN ---
Progress Note (short form) - Note Progress Note: C/o mild left sided chest pain currently no sob she is anxious denies sob, palpitations, dizziness Vital Signs - 24 hr 12/27/18 12/28/18 12/28/18 15:44 06:47 09:38 Temperature 98.7 F 98.2 F 97.7 F Pulse Rate 87 Pulse Rate [ 61 60 Left Radial] Respiratory 18 16 Rate Blood Pressure 141/58 L Blood Pressure 104/52 L 149/62 [Left Arm] O2 Sat by Pulse 100 98 98 Oximetry (%) Current Medications Generic Name Dose Route Start Last Admin Trade Name Freq PRN Reason Stop Dose Admin Allopurinol 100 mg 12/28/18 10:00 12/28/18 10:11 Zyloprim - PO 100 mg DAILY [facility] Administration Amlodipine Besylate 5 mg 12/28/18 10:00 12/28/18 10:10 Norvasc - PO 5 mg DAILY [facility] Administration Aspirin 81 mg 12/28/18 10:00 12/28/18 10:10 Asa - PO 81 mg DAILY [facility] Administration Atorvastatin Calcium 10 mg 12/28/18 22:00 Lipitor - PO HS [facility] Enoxaparin Sodium 40 mg 12/28/18 10:00 12/28/18 10:10 Lovenox - SQ 40 mg DAILY [facility] Administration Levothyroxine Sodium 50 mcg 12/28/18 07:00 12/28/18 06:53 Synthroid - PO 50 mcg DAILY@0700 [facility] Administration Metformin HCl 500 mg 12/30/18 07:00 Glucophage - PO Q2D@0700 [facility] Propranolol HCl 120 mg 12/28/18 10:00 12/28/18 10:10 Inderal La - PO 120 mg DAILY [facility] Administration Laboratory Results - last 24 hr 12/27/18 12/27/18 12/27/18 16:03 17:14 17:14 WBC 6.3 RBC 4.25 Hgb 13.9 Hct 39.7 MCV 93.4 MCH 32.8 MCHC 35.1 RDW 12.6 Plt Count 229 MPV 8.7 Absolute Neuts (auto) 4.6 Neutrophils % 74.2 D Lymphocytes % 17.0 D Monocytes % 6.7 Eosinophils % 0.9 Basophils % 1.2 Nucleated RBC % 0 Sodium 141 Potassium 3.8 Chloride 108 H Carbon Dioxide 26 Anion Gap 7 L BUN 15 Creatinine 0.5 L Creat Clearance w eGFR > 60 POC Glucometer Random Glucose 108 H Calcium 9.5 Phosphorus Magnesium Total Bilirubin 0.3 AST 25 ALT 35 Alkaline Phosphatase 96 Creatine Kinase 61 Troponin I < 0.02 B-Natriuretic Peptide Total Protein 7.4 Albumin 3.8 Triglycerides Cholesterol Total LDL Cholesterol HDL Cholesterol Lipase 237 TSH Urine Color Yellow Urine Appearance Clear Urine pH 8.0 D Ur Specific [place] 1.010 Urine Protein Negative Urine Glucose (UA) Negative Urine Ketones Negative Urine Blood 1+ H Urine Nitrite Negative Urine Bilirubin Negative Urine Urobilinogen 0.2 Ur Leukocyte Esterase Negative Urine WBC (Auto) 0-3 Urine RBC (Auto) 0-3 Ur Epithelial Cells 1+ Urine Bacteria 1+ Urine Mucus 2+ 12/28/18 12/28/18 12/28/18 00:21 00:21 00:21 WBC RBC Hgb Hct MCV MCH MCHC RDW Plt Count MPV Absolute Neuts (auto) Neutrophils % Lymphocytes % Monocytes % Eosinophils % Basophils % Nucleated RBC % Sodium Potassium Chloride Carbon Dioxide Anion Gap BUN Creatinine Creat Clearance w eGFR POC Glucometer Random Glucose Calcium Phosphorus Magnesium Total Bilirubin AST ALT Alkaline Phosphatase Creatine Kinase Troponin I B-Natriuretic Peptide 31.4 Total Protein Albumin Triglycerides 80 Cholesterol 157 Total LDL Cholesterol 78 HDL Cholesterol 68 H Lipase TSH 1.07 Urine Color Urine Appearance Urine pH Ur Specific [place] Urine Protein Urine Glucose (UA) Urine Ketones Urine Blood Urine Nitrite Urine Bilirubin Urine Urobilinogen Ur Leukocyte Esterase Urine WBC (Auto) Urine RBC (Auto) Ur Epithelial Cells Urine Bacteria Urine Mucus 12/28/18 12/28/18 12/28/18 00:23 06:00 06:45 WBC 6.0 RBC 4.08 Hgb 13.2 Hct 38.0 MCV 93.0 MCH 32.4 MCHC 34.8 RDW 12.7 Plt Count 224 MPV 8.5 Absolute Neuts (auto) Neutrophils % Lymphocytes % Monocytes % Eosinophils % Basophils % Nucleated RBC % Sodium 143 Potassium 3.6 Chloride 112 H Carbon Dioxide 27 Anion Gap 4 L BUN 11 Creatinine 0.6 Creat Clearance w eGFR > 60 POC Glucometer Random Glucose 86 Calcium 8.7 Phosphorus 3.1 Magnesium 2.4 Total Bilirubin AST ALT Alkaline Phosphatase Creatine Kinase Troponin I < 0.02 B-Natriuretic Peptide Total Protein Albumin Triglycerides Cholesterol Total LDL Cholesterol HDL Cholesterol Lipase TSH Urine Color Urine Appearance Urine pH Ur Specific [place] Urine Protein Urine Glucose (UA) Urine Ketones Urine Blood Urine Nitrite Urine Bilirubin Urine Urobilinogen Ur Leukocyte Esterase Urine WBC (Auto) Urine RBC (Auto) Ur Epithelial Cells Urine Bacteria Urine Mucus 12/28/18 06:56 WBC RBC Hgb Hct MCV MCH MCHC RDW Plt Count MPV Absolute Neuts (auto) Neutrophils % Lymphocytes % Monocytes % Eosinophils % Basophils % Nucleated RBC % Sodium Potassium Chloride Carbon Dioxide Anion Gap BUN Creatinine Creat Clearance w eGFR POC Glucometer 85 Random Glucose Calcium Phosphorus Magnesium Total Bilirubin AST ALT Alkaline Phosphatase Creatine Kinase Troponin I B-Natriuretic Peptide Total Protein Albumin Triglycerides Cholesterol Total LDL Cholesterol HDL Cholesterol Lipase TSH Urine Color Urine Appearance Urine pH Ur Specific [place] Urine Protein Urine Glucose (UA) Urine Ketones Urine Blood Urine Nitrite Urine Bilirubin Urine Urobilinogen Ur Leukocyte Esterase Urine WBC (Auto) Urine RBC (Auto) Ur Epithelial Cells Urine Bacteria Urine Mucus no pallor S1 S2 RRR Lungs clear Left chest wall tenderness+ Rt axillary lipoma Rt breast-- no masses felt Abd- soft, NT no edema PLAN cardiac enzymes x 2 negative Ordered Echo She had exercise stress test here in 2018-- negative for ischemia Also in 2017 she had nuclear stress test-- negative for ischemia Chest pain ?costochondritis pain control Cardiology eval check one more troponin Problem List - Problems (1) Anxiety Code(s): F41.9 - ANXIETY DISORDER, UNSPECIFIED (2) Chest pain Code(s): R07.9 - CHEST PAIN, UNSPECIFIED Qualifiers: Chest pain type: unspecified Qualified Code(s): R07.9 - Chest pain, unspecified (3) Breast cancer, right Code(s): C50.911 - MALIGNANT NEOPLASM OF UNSP SITE OF RIGHT FEMALE BREAST Qualifiers: Breast location: upper outer quadrant of breast Estrogen receptor status: positive Patient sex: female Qualified Code(s): C50.411 - Malignant neoplasm of upper-outer quadrant of right female breast; Z17.0 - Estrogen receptor positive status [ER+]; Z17.0 - Estrogen receptor positive status [ER+]
[2018-12-28] MEDS: ASPIRIN 81 MG CHEWABLE TABLETS PO SCH (10:10)
[2018-12-28] MEDS: amLODIPine BESYLATE 5 MG TABLET (FP) PO SCH (10:10)
[2018-12-28] MEDS: ENOXAPARIN NA (PORCINE) 40 MG/0.4 ML DISP.SYRIN SQ SCH (10:10)
[2018-12-28] MEDS: ALLOPURINOL 100 MG TABLET (FP) PO SCH (10:11)
[2018-12-28] MEDS ORDERED: IBUPROFEN 400 MG TABLET (FP) PO PRN (10:33)
--- NOTE | 2018-12-28 10:54 | CON.CARD ---
Consult Consult Specialty:: Cardioogy - History of Present Illness Chief Complaint: cp History of Present Illness: 3 year old female with history of right breast cancer with lumpectomy and radiation therapy completed in February 2018, follows with Oncology-Dr. Mohan, hypertension, hyperlipidemia, hypothyroidism, and diabetes mellitus who presents with symptoms of intermittent chest discomfort with radiation to left arm and back associated with shortness of breath at rest for the past 3 weeks. She reports she is unable to lie flat and cannot catch her breath. She denies fever, cough ,nausea, vomiting abdominal pain, hemoptysis or lower extremity pain or swelling. She reports having a stress test several years ago but not recently. Upon evaluation in the ER she was found to have a negative CT angiogram of chest. Pulmonary embolism and aortic aneurysm was excluded. EKG showing no signs of acute ischemia. Initial troponin in normal. Urinalysis with with 1+ bacteria and blood, negative nitrite and leukoesterase, WBC 0-3. She was given one dosage of oral keflex. Urine culture is pending. - History Source History Provided By: Patient, Medical Record - Past Medical History Cardio/Vascular: Yes: HTN Musculoskeletal: Yes: Other (Gout) Rheumatology: Yes: Gout Endocrine: Yes: Hypothyroidism - Alcohol/Substance Use Hx Alcohol Use: No - Smoking History Smoking history: Never smoked Have you smoked in the past 12 months: No Home Medications - Allergies Allergies/Adverse Reactions: Allergies Allergy/AdvReac Type Severity Reaction Status Date / Time streptomycin Allergy Severe Difficulty Verified 12/27/18 15:43 Breathing - Home Medications Home Medications: Ambulatory Orders Allopurinol [Zyloprim -] 100 mg PO DAILY 12/28/18 Amlodipine Besylate [Norvasc -] 5 mg PO DAILY 12/28/18 Levothyroxine [Synthroid -] 50 mcg PO DAILY 12/28/18 Propranolol HCl [Inderal Xl] 120 mg PO DAILY 12/28/18 Simvastatin [Zocor] 10 mg PO HS 12/28/18 metFORMIN HCL [Metformin HCl] 500 mg PO ASDIR 12/28/18 Family Disease History - Family Disease History Family Disease History: CA: Sister (thyroid ca 63 ), Daughter (uterine ca at 47 ) Review of Systems - Review of Systems Constitutional: reports: No Symptoms Eyes: reports: No Symptoms HENT: reports: No Symptoms Neck: reports: No Symptoms Cardiovascular: reports: Chest Pain Respiratory: reports: No Symptoms Gastrointestinal: reports: No Symptoms Genitourinary: reports: No Symptoms Breasts: reports: No Symptoms Reported Musculoskeletal: reports: No Symptoms Integumentary: reports: No Symptoms Neurological: reports: No Symptoms Endocrine: reports: No Symptoms Hematology/Lymphatic: reports: No Symptoms Psychiatric: reports: No Symptoms Vital Signs: Vital Signs Temperature 97.7 F 12/28/18 09:38 Pulse Rate 60 12/28/18 09:38 Respiratory Rate 16 12/28/18 09:38 Blood Pressure 149/62 12/28/18 09:38 O2 Sat by Pulse Oximetry (%) 98 12/28/18 09:38 Constitutional: Yes: Well Nourished, No Distress, Calm Eyes: Yes: WNL, Conjunctiva Clear, EOM Intact HENT: Yes: WNL, Atraumatic, Normocephalic Neck: Yes: WNL, Supple, Trachea Midline Respiratory: Yes: WNL, Regular, CTA Bilaterally Gastrointestinal: Yes: WNL, Normal Bowel Sounds Renal/: Yes: WNL Cardiovascular: Yes: WNL, Regular Rate and Rhythm Musculoskeletal: Yes: WNL Extremities: Yes: WNL Integumentary: Yes: WNL Neurological: Yes: WNL, Alert, Oriented ...Motor Strength: WNL Psychiatric: Yes: WNL, Alert, Oriented - Other Data Labs, Other Data: CBC, BMP 12/28/18 06:00 12/28/18 06:45 Troponin, BNP 12/27/18 12/28/18 12/28/18 17:14 00:21 00:23 Troponin I < 0.02 < 0.02 B-Natriuretic Peptide 31.4 Troponin, BNP 12/27/18 12/28/18 12/28/18 17:14 00:21 00:23 Troponin I < 0.02 < 0.02 B-Natriuretic Peptide 31.4 Imaging - Results Chest X-ray: Image Reviewed (no i/e) EKG: Image Reviewed (sr rep abn) Problem List - Problems (1) Anxiety Code(s): F41.9 - ANXIETY DISORDER, UNSPECIFIED (2) Chest pain Code(s): R07.9 - CHEST PAIN, UNSPECIFIED Qualifiers: Chest pain type: unspecified Qualified Code(s): R07.9 - Chest pain, unspecified (3) Breast cancer, right Code(s): C50.911 - MALIGNANT NEOPLASM OF UNSP SITE OF RIGHT FEMALE BREAST Qualifiers: Breast location: upper outer quadrant of breast Estrogen receptor status: positive Patient sex: female Qualified Code(s): C50.411 - Malignant neoplasm of upper-outer quadrant of right female breast; Z17.0 - Estrogen receptor positive status [ER+]; Z17.0 - Estrogen receptor positive status [ER+] Assessment/Plan atypical cp r/o mi neg neg CTA for PE DM hypothyroidism HLP HTN Plan EST for risk stratification
--- NOTE | 2018-12-28 10:57 | PN ---
Progress Note, Physician History of Present Illness: 3 year old female with history of right breast cancer with lumpectomy and radiation therapy completed in February 2018, follows with Oncology-Dr. Mohan, hypertension, hyperlipidemia, hypothyroidism, and diabetes mellitus who presents with symptoms of intermittent chest discomfort with radiation to left arm and back associated with shortness of breath at rest for the past 3 weeks. She reports she is unable to lie flat and cannot catch her breath. She denies fever, cough ,nausea, vomiting abdominal pain, hemoptysis or lower extremity pain or swelling. She reports having a stress test several years ago but not recently. Upon evaluation in the ER she was found to have a negative CT angiogram of chest. Pulmonary embolism and aortic aneurysm was excluded. EKG showing no signs of acute ischemia. Initial troponin in normal. Urinalysis with with 1+ bacteria and blood, negative nitrite and leukoesterase, WBC 0-3. She was given one dosage of oral keflex. Urine culture is pending. - Current Medication List Current Medications: Active Medications Allopurinol (Zyloprim -) 100 mg PO DAILY [facility] Last Admin: 12/28/18 10:11 Dose: 100 mg Amlodipine Besylate (Norvasc -) 5 mg PO DAILY [facility] Last Admin: 12/28/18 10:10 Dose: 5 mg Aspirin (Asa -) 81 mg PO DAILY [facility] Last Admin: 12/28/18 10:10 Dose: 81 mg Atorvastatin Calcium (Lipitor -) 10 mg PO HS [facility] Enoxaparin Sodium (Lovenox -) 40 mg SQ DAILY [facility] Last Admin: 12/28/18 10:10 Dose: 40 mg Ibuprofen (Motrin -) 400 mg PO Q6H PRN PRN Reason: FEVER Levothyroxine Sodium (Synthroid -) 50 mcg PO DAILY@0700 [facility] Last Admin: 12/28/18 06:53 Dose: 50 mcg Metformin HCl (Glucophage -) 500 mg PO Q2D@0700 [facility] Propranolol HCl (Inderal La -) 120 mg PO DAILY [facility] Last Admin: 12/28/18 10:10 Dose: 120 mg - Objective Vital Signs: Vital Signs Temperature 97.7 F 12/28/18 09:38 Pulse Rate 60 12/28/18 09:38 Respiratory Rate 16 12/28/18 09:38 Blood Pressure 149/62 12/28/18 09:38 O2 Sat by Pulse Oximetry (%) 98 12/28/18 09:38 Eyes: Yes: WNL, Conjunctiva Clear, EOM Intact HENT: Yes: WNL, Atraumatic, Normocephalic Neck: Yes: WNL, Supple, Trachea Midline Cardiovascular: Yes: WNL, Regular Rate and Rhythm Respiratory: Yes: WNL, Regular, CTA Bilaterally Gastrointestinal: Yes: WNL, Normal Bowel Sounds Genitourinary: Yes: WNL Musculoskeletal: Yes: WNL Extremities: Yes: WNL Edema: No Integumentary: Yes: WNL Neurological: Yes: WNL, Alert, Oriented ...Motor Strength: WNL Psychiatric: Yes: WNL Labs: CBC, BMP 12/28/18 06:00 12/28/18 06:45 Laboratory Tests 12/27/18 12/27/18 12/27/18 16:03 17:14 17:14 WBC 6.3 RBC 4.25 Hgb 13.9 Hct 39.7 MCV 93.4 MCH 32.8 MCHC 35.1 RDW 12.6 Plt Count 229 MPV 8.7 Absolute Neuts (auto) 4.6 Neutrophils % 74.2 D Lymphocytes % 17.0 D Monocytes % 6.7 Eosinophils % 0.9 Basophils % 1.2 Nucleated RBC % 0 Sodium 141 Potassium 3.8 Chloride 108 H Carbon Dioxide 26 Anion Gap 7 L BUN 15 Creatinine 0.5 L Creat Clearance w eGFR > 60 POC Glucometer Random Glucose 108 H Calcium 9.5 Phosphorus Magnesium Total Bilirubin 0.3 AST 25 ALT 35 Alkaline Phosphatase 96 Creatine Kinase 61 Troponin I < 0.02 B-Natriuretic Peptide Total Protein 7.4 Albumin 3.8 Triglycerides Cholesterol Total LDL Cholesterol HDL Cholesterol Lipase 237 TSH Urine Color Yellow Urine Appearance Clear Urine pH 8.0 D Ur Specific [place] 1.010 Urine Protein Negative Urine Glucose (UA) Negative Urine Ketones Negative Urine Blood 1+ H Urine Nitrite Negative Urine Bilirubin Negative Urine Urobilinogen 0.2 Ur Leukocyte Esterase Negative Urine WBC (Auto) 0-3 Urine RBC (Auto) 0-3 Ur Epithelial Cells 1+ Urine Bacteria 1+ Urine Mucus 2+ 12/28/18 12/28/18 12/28/18 00:21 00:21 00:21 WBC RBC Hgb Hct MCV MCH MCHC RDW Plt Count MPV Absolute Neuts (auto) Neutrophils % Lymphocytes % Monocytes % Eosinophils % Basophils % Nucleated RBC % Sodium Potassium Chloride Carbon Dioxide Anion Gap BUN Creatinine Creat Clearance w eGFR POC Glucometer Random Glucose Calcium Phosphorus Magnesium Total Bilirubin AST ALT Alkaline Phosphatase Creatine Kinase Troponin I B-Natriuretic Peptide 31.4 Total Protein Albumin Triglycerides 80 Cholesterol 157 Total LDL Cholesterol 78 HDL Cholesterol 68 H Lipase TSH 1.07 Urine Color Urine Appearance Urine pH Ur Specific [place] Urine Protein Urine Glucose (UA) Urine Ketones Urine Blood Urine Nitrite Urine Bilirubin Urine Urobilinogen Ur Leukocyte Esterase Urine WBC (Auto) Urine RBC (Auto) Ur Epithelial Cells Urine Bacteria Urine Mucus 12/28/18 12/28/18 12/28/18 00:23 06:00 06:45 WBC 6.0 RBC 4.08 Hgb 13.2 Hct 38.0 MCV 93.0 MCH 32.4 MCHC 34.8 RDW 12.7 Plt Count 224 MPV 8.5 Absolute Neuts (auto) Neutrophils % Lymphocytes % Monocytes % Eosinophils % Basophils % Nucleated RBC % Sodium 143 Potassium 3.6 Chloride 112 H Carbon Dioxide 27 Anion Gap 4 L BUN 11 Creatinine 0.6 Creat Clearance w eGFR > 60 POC Glucometer Random Glucose 86 Calcium 8.7 Phosphorus 3.1 Magnesium 2.4 Total Bilirubin AST ALT Alkaline Phosphatase Creatine Kinase Troponin I < 0.02 B-Natriuretic Peptide Total Protein Albumin Triglycerides Cholesterol Total LDL Cholesterol HDL Cholesterol Lipase TSH Urine Color Urine Appearance Urine pH Ur Specific [place] Urine Protein Urine Glucose (UA) Urine Ketones Urine Blood Urine Nitrite Urine Bilirubin Urine Urobilinogen Ur Leukocyte Esterase Urine WBC (Auto) Urine RBC (Auto) Ur Epithelial Cells Urine Bacteria Urine Mucus 12/28/18 06:56 WBC RBC Hgb Hct MCV MCH MCHC RDW Plt Count MPV Absolute Neuts (auto) Neutrophils % Lymphocytes % Monocytes % Eosinophils % Basophils % Nucleated RBC % Sodium Potassium Chloride Carbon Dioxide Anion Gap BUN Creatinine Creat Clearance w eGFR POC Glucometer 85 Random Glucose Calcium Phosphorus Magnesium Total Bilirubin AST ALT Alkaline Phosphatase Creatine Kinase Troponin I B-Natriuretic Peptide Total Protein Albumin Triglycerides Cholesterol Total LDL Cholesterol HDL Cholesterol Lipase TSH Urine Color Urine Appearance Urine pH Ur Specific [place] Urine Protein Urine Glucose (UA) Urine Ketones Urine Blood Urine Nitrite Urine Bilirubin Urine Urobilinogen Ur Leukocyte Esterase Urine WBC (Auto) Urine RBC (Auto) Ur Epithelial Cells Urine Bacteria Urine Mucus Problem List - Problems (1) Anxiety Code(s): F41.9 - ANXIETY DISORDER, UNSPECIFIED (2) Chest pain Code(s): R07.9 - CHEST PAIN, UNSPECIFIED Qualifiers: Chest pain type: unspecified Qualified Code(s): R07.9 - Chest pain, unspecified (3) Breast cancer, right Code(s): C50.911 - MALIGNANT NEOPLASM OF UNSP SITE OF RIGHT FEMALE BREAST Qualifiers: Breast location: upper outer quadrant of breast Estrogen receptor status: positive Patient sex: female Qualified Code(s): C50.411 - Malignant neoplasm of upper-outer quadrant of right female breast; Z17.0 - Estrogen receptor positive status [ER+]; Z17.0 - Estrogen receptor positive status [ER+] Assessment/Plan atypical cp r/o mi neg neg CTA for PE DM hypothyroidism HLP HTN Plan cont ASA EST for risk stratification
--- NOTE | 2018-12-28 13:35 | EKG ---
Test Reason : Blood Pressure : / mmHG Vent. Rate : 087 BPM Atrial Rate : 087 BPM P-R Int : 158 ms QRS Dur : 076 ms QT Int : 382 ms P-R-T Axes : 064 -38 030 degrees QTc Int : 459 ms NORMAL SINUS RHYTHM LEFT AXIS DEVIATION ABNORMAL ECG NO PREVIOUS ECGS AVAILABLE Confirmed by MD TREVON, JOVANY ([id number]) on 12/28/2018 1:34:56 PM Referred By: Confirmed By:JOVANY LESTER MD
--- NOTE | 2018-12-28 16:35 | ECHO ---
Name: RADHA CRISTIANCONNER Exam:Adult Echocardiogram Study Date: 12/28/2018 12:26 PM Age: 73 yrs Reason For Study: Chest pain Height: 59 in Weight: 94 lb BSA: 1.3 m2 MMode/2D Measurements & Calculations IVSd: 0.73 cm Ao root diam: 2.2 cm LVIDd: 3.6 cm LA dimension: 2.7 cm LVIDs: 2.7 cm LVPWd: 0.93 cm EDV(Teich): 55.8 ml LVOT diam: 1.8 cm ESV(Teich): 26.6 ml TAPSE: 2.4 cm RV S Sincere: 9.5 cm/sec Doppler Measurements & Calculations MV E max sincere: 98.5 cm/sec Ao V2 max: 178.1 cm/sec MV A max sinceer: 94.6 cm/sec Ao max P.7 mmHg MV E/A: 1.0 Ao V2 mean: 117.2 cm/sec Ao mean P.5 mmHg Ao V2 VTI: 40.9 cm MADELINE(I,D): 1.5 cm2 MADELINE(V,D): 1.4 cm2 LV V1 max P.1 mmHg SV(LVOT): 60.7 ml LV V1 mean P.1 mmHg LV V1 max: 100.9 cm/sec LV V1 mean: 68.2 cm/sec LV V1 VTI: 23.8 cm Med Peak E' Sincere: 7.1 cm/sec Med E/e': 13.9 Lat Peak E' Sincere: 6.1 cm/sec Lat E/e': 16.2 Left Ventricle The left ventricular size, thickness and function are normal. Ejection Fraction = 65%. The transmitra l spectral Doppler flow pattern is normal for age. Right Ventricle The right ventricle is normal in size and function. Atria Normal left and right atrial size and function. Mitral Valve There is mild mitral annular calcification. Tricuspid Valve The tricuspid valve is not well visualized, but is grossly normal. There is trace tricuspid regurgita tion. There was insufficient TR detected to calculate RV systolic pressure. Aortic Valve There is mild aortic sclerosis.;. Pulmonic Valve The pulmonic valve is not well visualized. Great Vessels The aortic root is normal size. Normal aortic arch, descending and ascending aorta. Pericardium/Pleura There is no pericardial effusion. Interpretation Summary This was essentially a normal study. MD Alanna Cannon 12/28/2018 04:35 PM
[2018-12-28] MEDS ORDERED: MELATONIN 5 MG TABLETS PO PRN (21:39)
[2018-12-28] MEDS ORDERED: ATORVASTATIN CA 10 MG TABLET (FP) PO SCH (22:00)
[2018-12-28 23:57] VITALS: BMI 19.1
[2018-12-29] MEDS: LEVOTHYROXINE NA 50 MCG TABLET (FP) PO SCH (06:26)
--- NOTE | 2018-12-29 10:19 | PN ---
Problem List - Problems (1) Anxiety Code(s): F41.9 - ANXIETY DISORDER, UNSPECIFIED (2) Chest pain Code(s): R07.9 - CHEST PAIN, UNSPECIFIED Qualifiers: Chest pain type: unspecified Qualified Code(s): R07.9 - Chest pain, unspecified (3) Breast cancer, right Code(s): C50.911 - MALIGNANT NEOPLASM OF UNSP SITE OF RIGHT FEMALE BREAST Qualifiers: Breast location: upper outer quadrant of breast Estrogen receptor status: positive Patient sex: female Qualified Code(s): C50.411 - Malignant neoplasm of upper-outer quadrant of right female breast; Z17.0 - Estrogen receptor positive status [ER+]; Z17.0 - Estrogen receptor positive status [ER+]
--- NOTE | 2018-12-29 10:34 | PN ---
Progress Note, Physician History of Present Illness: 3 year old female with history of right breast cancer with lumpectomy and radiation therapy completed in February 2018, follows with Oncology-Dr. Mohan, hypertension, hyperlipidemia, hypothyroidism, and diabetes mellitus who presents with symptoms of intermittent chest discomfort with radiation to left arm and back associated with shortness of breath at rest for the past 3 weeks. She reports she is unable to lie flat and cannot catch her breath. She denies fever, cough ,nausea, vomiting abdominal pain, hemoptysis or lower extremity pain or swelling. She reports having a stress test several years ago but not recently. Upon evaluation in the ER she was found to have a negative CT angiogram of chest. Pulmonary embolism and aortic aneurysm was excluded. EKG showing no signs of acute ischemia. Initial troponin in normal. Urinalysis with with 1+ bacteria and blood, negative nitrite and leukoesterase, WBC 0-3. She was given one dosage of oral keflex. Urine culture is pending. - Current Medication List Current Medications: Active Medications Allopurinol (Zyloprim -) 100 mg PO DAILY [facility] Last Admin: 12/28/18 10:11 Dose: 100 mg Amlodipine Besylate (Norvasc -) 5 mg PO DAILY [facility] Last Admin: 12/28/18 10:10 Dose: 5 mg Aspirin (Asa -) 81 mg PO DAILY [facility] Last Admin: 12/28/18 10:10 Dose: 81 mg Atorvastatin Calcium (Lipitor -) 10 mg PO HS [facility] Last Admin: 12/28/18 22:28 Dose: 10 mg Enoxaparin Sodium (Lovenox -) 40 mg SQ DAILY [facility] Last Admin: 12/28/18 10:10 Dose: 40 mg Ibuprofen (Motrin -) 400 mg PO Q6H PRN PRN Reason: FEVER Levothyroxine Sodium (Synthroid -) 50 mcg PO DAILY@0700 [facility] Last Admin: 12/29/18 06:26 Dose: 50 mcg Melatonin (Melatonin) 5 mg PO HS PRN PRN Reason: INSOMNIA Last Admin: 12/28/18 22:28 Dose: 5 mg Metformin HCl (Glucophage -) 500 mg PO Q2D@0700 [facility] Propranolol HCl (Inderal La -) 120 mg PO DAILY [facility] Last Admin: 12/28/18 10:10 Dose: 120 mg - Objective Vital Signs: Vital Signs Temperature 98.4 F 12/29/18 09:00 Pulse Rate 52 L 12/29/18 09:00 Respiratory Rate 20 12/29/18 09:00 Blood Pressure 113/60 12/29/18 09:00 O2 Sat by Pulse Oximetry (%) 98 12/29/18 04:00 Eyes: Yes: WNL, Conjunctiva Clear, EOM Intact HENT: Yes: WNL, Atraumatic, Normocephalic Neck: Yes: WNL, Supple, Trachea Midline Cardiovascular: Yes: WNL, Regular Rate and Rhythm Respiratory: Yes: WNL, Regular, CTA Bilaterally Gastrointestinal: Yes: WNL, Normal Bowel Sounds Genitourinary: Yes: WNL Musculoskeletal: Yes: WNL Extremities: Yes: WNL Edema: No Integumentary: Yes: WNL Neurological: Yes: WNL, Alert, Oriented ...Motor Strength: WNL Psychiatric: Yes: WNL Labs: CBC, BMP 12/28/18 06:00 12/28/18 06:45 Problem List - Problems (1) Anxiety Code(s): F41.9 - ANXIETY DISORDER, UNSPECIFIED (2) Chest pain Code(s): R07.9 - CHEST PAIN, UNSPECIFIED Qualifiers: Chest pain type: unspecified Qualified Code(s): R07.9 - Chest pain, unspecified (3) Breast cancer, right Code(s): C50.911 - MALIGNANT NEOPLASM OF UNSP SITE OF RIGHT FEMALE BREAST Qualifiers: Breast location: upper outer quadrant of breast Estrogen receptor status: positive Patient sex: female Qualified Code(s): C50.411 - Malignant neoplasm of upper-outer quadrant of right female breast; Z17.0 - Estrogen receptor positive status [ER+]; Z17.0 - Estrogen receptor positive status [ER+] Assessment/Plan atypical cp r/o mi neg neg CTA for PE DM hypothyroidism HLP HTN Plan EST negative for ischemia. From cardiac point of view can be d/c home.
[2018-12-29] MEDS ORDERED: PT OWN MED DRAWER 7, Y5N ONE (12:56)
[2018-12-29] MEDS: ALLOPURINOL 100 MG TABLET (FP) PO SCH (12:58)
[2018-12-29] MEDS: amLODIPine BESYLATE 5 MG TABLET (FP) PO SCH (12:58)
[2018-12-29] MEDS: ASPIRIN 81 MG CHEWABLE TABLETS PO SCH (12:58)
[2018-12-29] MEDS: ENOXAPARIN NA (PORCINE) 40 MG/0.4 ML DISP.SYRIN SQ SCH (13:01)
--- NOTE | 2018-12-29 13:14 | ECHO ---
Name: YUMIKO GARCIA Exam:Exerise Stress Echocardiogram Study Date: 12/29/2018 11:38 AM Age: 73 yrs Reason For Study: Chest pain Height: 59 in Weight: 94 lb BSA: 1.3 m2 Procedure Details: Exercise Stress Echocardiogram with 2D imaging. Stress Comments Normal resting electrocardiogram. Exercise Echocardiogram Negative exercise stress echocardiogram, adequate by heart rate criteria, without symptoms, diagnosti c EKG changes or echocardiographic evidence of ischemia. Interpretation Summary Exercise Stress Echocardiogram with 2D imaging Negative exercise stress echocardiogram, adequate by heart rate criteria, without symptoms, diagnosti c EKG changes or echocardiographic evidence of ischemia Reading Physician: MD Jaswinder Proctor 12/29/2018 01:14 PM
[2018-12-29 15:14] VITALS: BP 118/64; PULSE 92; TEMP 99
--- NOTE | 2018-12-29 18:56 | DS ---
Physical Examination Vital Signs: Vital Signs Temperature 99.0 F 12/29/18 15:08 Pulse Rate 92 H 12/29/18 15:08 Respiratory Rate 20 12/29/18 15:08 Blood Pressure 118/64 12/29/18 15:08 O2 Sat by Pulse Oximetry (%) 98 12/29/18 04:00 Constitutional: Yes: No Distress, Calm Cardiovascular: Yes: Regular Rate and Rhythm Respiratory: Yes: CTA Bilaterally Gastrointestinal: Yes: Normal Bowel Sounds, Soft. No: Tenderness Edema: No Labs: CBC, BMP 12/28/18 06:00 12/28/18 06:45 Discharge Summary Reason For Visit: Chest Pain Hospital Course: Admitted for chest pain CTA chest negative for PE and any new masses, or nodules Cardiac enzymes x 3 negative Seen and evaluated by Cardiology-- stress echo done today00 negative for ischemia Cardiac ospina is stable likely chest pain due to musculoskeletal pain stable for dc home, will need follow up with Oncology as outpt Condition: Good - Instructions Referrals: Too Melo MD [Staff Physician] - Disposition: HALFWAY FACILITY - Home Medications Comprehensive Discharge Medication List: Ambulatory Orders Allopurinol [Zyloprim -] 100 mg PO DAILY 12/28/18 Amlodipine Besylate [Norvasc -] 5 mg PO DAILY 12/28/18 Levothyroxine [Synthroid -] 50 mcg PO DAILY 12/28/18 Propranolol HCl [Inderal Xl] 120 mg PO DAILY 12/28/18 Simvastatin [Zocor] 10 mg PO HS 12/28/18 metFORMIN HCL [Metformin HCl] 500 mg PO ASDIR 12/28/18
[2018-12-30] MEDS ORDERED: metFORMIN HCL 500 MG TABLET (FP) PO SCH (07:00)
== END 2018-12-29 18:14 ==
LOC: JER 15:35 → JERBED 21:17 → J6S 12-28 20:25
PROVIDERS: ADMIT Internal Medicine; ATTEND Internal Medicine
PROC: 3E033NZ Introduction of Analgesics, Hypnotics, Sedatives into Peripheral Vein, Percutaneous Approach (ICD-10-PCS; principal; 2018-12-27)
PROC: 3E0337Z Introduction of Electrolytic and Water Balance Substance into Peripheral Vein, Percutaneous Approach (ICD-10-PCS; 2018-12-27)
DX: R07.89 Other chest pain (principal); F41.9 Anxiety disorder, unspecified; I10 Essential (primary) hypertension; E78.5 Hyperlipidemia, unspecified; E11.9 Type 2 diabetes mellitus without complications; E89.0 Postprocedural hypothyroidism; M81.0 Age-related osteoporosis without current pathological fracture; R82.90 Unspecified abnormal findings in urine; Z85.3 Personal history of malignant neoplasm of breast; Z17.0 Estrogen receptor positive status [ER+]; Z92.3 Personal history of irradiation; Z79.84 Long term (current) use of oral hypoglycemic drugs; Z88.1 Allergy status to other antibiotic agents
CPT/HCPCS: 36415; 71275-TC; 80048; 80053; 80061; 81003; 81015; 82550; 82962; 83690; 83721; 83735; 83880; 84100; 84443; 84484; 85025; 85027; 87086; 93005; 93010; 93306-TC; 93351; 96365; 96375; 99285-25; G0378; J0131; J7030

== ENCOUNTER 2019-04-29 17:19 | Observation (INO) | payer MEDICARE, OTHER ==
[2019-04-29 17:35] VITALS: BMI 19.6
[2019-04-29] MEDS ORDERED: SODIUM CHLORIDE 1,000 ML IV STA (17:35)
--- NOTE | 2019-04-29 17:35 | PDOC ---
Rapid Medical Evaluation Time Seen by Provider: 04/29/19 17:32 Medical Evaluation: Allergies Allergy/AdvReac Type Severity Reaction Status Date / Time streptomycin Allergy Severe Difficulty Verified 12/27/18 15:43 Breathing 04/29/19 17:32 I have performed a brief in-person evaluation of this patient. The patient presents with a chief complaint of: weakness s/p epistaxis Pertinent physical exam findings: VSS. AF. conjunctiva WNL. I have ordered the following: anemia w/u The patient will proceed to the ED for further evaluation. Discharge Disposition - Diagnosis Weakness - Referrals - Patient Instructions - Post Discharge Activity
[2019-04-29 18:27] LABS: BASO % 0.7 % (0-2.0); EOS % 1.2 % (0-4.5); HEMATOCRIT 42.4 % (32.4-45.2); HEMOGLOBIN 14.1 GM/dL (10.7-15.3); LYMPH % 13.9 % (8-40); MCH 31.8 pg (25.7-33.7); MCHC 33.3 g/dl (32.0-36.0); MEAN CELL VOLUME 95.4 fl (80-96); MEAN PLT VOLUME 7.8 fl (7.5-11.1); MONO % 7.3 % (3.8-10.2); NEUT % 76.9 % (42.8-82.8); PLATELET COUNT 270 K/MM3 (134-434); RBC 4.45 M/mm3 (3.60-5.2); RDW 12.6 % (11.6-15.6); RETICULOCYTES 0.71 % (0.5-1.5); WHITE BLOOD COUNT 7.6 K/mm3 (4.0-10.0)
[2019-04-29 18:38] LABS: INR 0.97 (0.83-1.09); PROTHROMBIN TIME (PATIENT) 11.4 SEC (9.7-13.0)
[2019-04-29 19:03] LABS: ALBUMIN 4.1 g/dl (3.4-5.0); ALK PHOS 107 U/L (45-117); ANION GAP 4 MMOL/L (8-16); BILIRUBIN,TOTAL 0.2 mg/dL (0.2-1); BLOOD UREA NITROGEN 20.9 mg/dL (7-18); CALCIUM 10.4 mg/dL (8.5-10.1); CHLORIDE 106 mmol/L (98-107); CO2 29 mmol/L (21-32); GLUCOSE,RANDOM 127 mg/dL (74-106); SGOT/AST 16 U/L (15-37); SGPT/ALT 35 U/L (13-61); SODIUM 139 mmol/L (136-145); TOT PROT 7.8 g/dl (6.4-8.2)
[2019-04-29] MEDS ORDERED: ACETAMINOPHEN 1000 MG/100 ML VIAL (NON FORMULARY) IVPB ONE (19:45)
[2019-04-29] MEDS ORDERED: ONDANSETRON 4 MG/2 ML VIAL IVPUSH ONE (19:45)
[2019-04-29] MEDS ORDERED: ACETAMINOPHEN INJECTION 100 ML IVPB ONE (20:07)
[2019-04-29] MEDS ORDERED: ONDANSETRON 4 MG/2 ML VIAL ONE (20:08)
--- NOTE | 2019-04-29 21:57 | PDOC ---
Documentation entered by Cinthya Daniels SCRIBE, acting as scribe for Sheri Villegas MD. Sheri Villegas MD: This documentation has been prepared by the Jeremiah neves Xhesika, SCRIBE, under my direction and personally reviewed by me in its entirety. I confirm that the documentation accurately reflects all work, treatment, procedures, and medical decision making performed by me. 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 The patient describes her chest pain as intermittent, 6/10, that radiates to her L axilla. Patient states she recently traveled to [place]. The patient denies history of PE. The patient denies shortness of breath, headache and dizziness. Denies fever, chills, nausea, vomit, diarrhea and constipation. Denies dysuria, frequency, urgency and hematuria. Allergies: Streptomycin Past surgical history: ABD MYOMECTOMY - Physicial Exam PE: 04/29/19 21:51 GENERAL: Awake, alert, and fully oriented, in no acute distress HEAD: No signs of trauma EYES: PERRLA, EOMI, sclera anicteric, conjunctiva clear ENT: Auricles normal inspection, hearing grossly normal, nares patent, oropharynx clear without exudates. Moist mucosa NECK: Normal ROM, supple, no lymphadenopathy, JVD, or masses LUNGS: Breath sounds equal, clear to auscultation bilaterally. No wheezes, and no crackles HEART: Regular rate and rhythm, normal S1 and S2, no murmurs, rubs or gallops ABDOMEN: Soft, nontender, normoactive bowel sounds. No guarding, no rebound. No masses EXTREMITIES: Normal range of motion, no edema. No clubbing or cyanosis. No cords, erythema, or tenderness NEUROLOGICAL: Cranial nerves II through XII grossly intact. Normal speech, normal gait SKIN: Warm, Dry, normal turgor, no rashes or lesions noted. - Medical Decision Making 04/29/19 21:54 Pt presents to the Ed with chest pain and shortness of breath. Differential includes PE, ACS, less likely CHF. Will check labs and CXR, likely check CT PE , admit to medicine for r/o ACS if CT PE is negative. 04/29/19 21:55
--- NOTE | 2019-04-30 00:34 | PDOC ---
History of Present Illness - General Chief Complaint: Chest Pain Stated Complaint: NOSEBLEEDS Time Seen by Provider: 04/29/19 17:32 - History of Present Illness Initial Comments: 73yo F with PMH of DCIS s/p lumpectomy/radition, HTN, HLD, hypothyroidism, lung nodules presenting with weakness x 3 days. Patient states she has felt lightheaded and dizzy such that she feels like she was going to pass out, but did not lose consciousness. After having weakness, patient has had daily epistaxis, about two episodes per day. Last night she started having chest pain , rated 6/10, intermittent and described as 'throbbing.' The pain is substernal and radiates to her left axilla. Reporting nausea, but no vomiting or diaphoresis. Denies personal history of MA. Father had an MA at age 84. Denies fever, but endorses chills. No shortness of breath or abdominal pain. DDX: Dr. Manisha Howell/Dr. Tiffany Sharpe Onc: Dr. 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,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) Cancer: Yes (BREAST) Cardiac Disorders: Yes (SOMETIMES C/O CHEST PAIN,SEEING DR DYKES 11/25/17) CVA: No COPD: No CHF: No Dementia: No Diabetes: Yes GI Disorders: Yes (STOMACH ULCER 20 YRS AGO) Disorders: No HTN: Yes Hypercholesterolemia: Yes Liver Disease: No (FATTY LIVER) Seizures: No Thyroid Disease: Yes (2003 TOTAL THYROIDECTOMY) - Surgical History Abdominal Surgery: Yes (ABD MYOMECTOMY) Appendectomy: No Cardiac Surgery: No Cholecystectomy: No Lung Surgery: No Neurologic Surgery: No Orthopedic Surgery: No - Suicide/Smoking/Psychosocial Hx Smoking History: Never smoked Have you smoked in the past 12 months: No Hx Alcohol Use: No Drug/Substance Use Hx: No Substance Use Type: None Hx Substance Use Treatment: No Review of Systems - Review of Systems Comments:: Constitutional: no fever, +chills HEENT: no throat pain, no dysphagia Cardiovascular: +chest pain, no palpitations Respiratory: no cough, no shortness of breath Gastrointestinal: no abdominal pain, +nausea Genitourinary: no dysuria, no frequency Musculoskeletal: no myalgia, no arthralgia Skin: no rash, no itching Neurologic: +headache, +weakness *Physical Exam - Vital Signs Last Vital Signs Temp Pulse Resp BP Pulse Ox 97.8 F 74 16 133/64 97 04/29/19 17:31 04/29/19 17:31 04/29/19 17:31 04/29/19 17:31 04/29/19 17:31 - Physical Exam Comments: General: Awake, alert, and fully oriented, in no acute distress Head: No signs of trauma Eyes: EOMI, sclera anicteric ENT: Moist mucus membranes Neck: Normal ROM, supple Lungs: Lungs clear, Normal breath sounds Cardio: Regular rhythm, S1 and S2 present Abdomen: Soft, nontender Extremities: Normal range of motion, Distal pulses present SKIN: Warm, Dry, normal turgor Neurologic: Cranial nerves II through XII grossly intact. Normal speech Heart Score/ECG Review - History History: Slightly suspicious - Electrocardiogram EKG: Normal - Age Age: >/= 65 - Risk Factors Risk Factors Heart Score: Yes Hx Hypercholesterolemia, Yes Hx Hypertension, Yes Positive family hx of cardiac disease Based on the list above the patient has:: >/=3 risk factors or Hx atherosclerotic disease - Troponin Troponin: </= normal limit - Score Heart Score - Total: 4 ED Treatment Course - LABORATORY CBC & Chemistry Diagram: 04/29/19 18:15 04/29/19 18:15 - ADDITIONAL ORDERS Additional order review: Laboratory Results 04/29/19 04/29/19 18:15 18:15 PT with INR 11.40 INR 0.97 Sodium 139 Potassium 4.0 Chloride 106 Carbon Dioxide 29 Anion Gap 4 L BUN 20.9 H Creatinine 1.0 Est GFR (CKD-EPI)AfAm 64.73 Est GFR (CKD-EPI)NonAf 55.85 Random Glucose 127 H Calcium 10.4 H Ferritin 78.6 Total Bilirubin 0.2 AST 16 ALT 35 Alkaline Phosphatase 107 Creatine Kinase 100 Troponin I < 0.02 Total Protein 7.8 Albumin 4.1 04/29/19 18:15 RBC 4.45 MCV 95.4 MCHC 33.3 RDW 12.6 MPV 7.8 Neutrophils % 76.9 Lymphocytes % 13.9 Monocytes % 7.3 Eosinophils % 1.2 Basophils % 0.7 - RADIOLOGY Radiology Studies Ordered: Category Date Time Status CHEST CTA [CT] Stat CT Scan 04/29/19 19:45 Taken - Medications Given in the ED: ED Medications Discontinued Medications Generic Name Dose Route Start Last Admin Trade Name Freq PRN Reason Stop Dose Admin Acetaminophen 1,000 mg 04/29/19 19:45 04/29/19 20:19 Ofirmev Injection - IVPB 04/29/19 19:46 1,000 mg ONCE ONE Administration Sodium Chloride 1,000 mls @ 1,000 mls/hr 04/29/19 17:35 04/29/19 18:27 Normal Saline - IV 04/29/19 18:34 1,000 mls/hr ASDIR STA Administration Ondansetron HCl 4 mg 04/29/19 19:45 04/29/19 20:19 Zofran Injection IVPUSH 04/29/19 19:46 4 mg ONCE ONE Administration Medical Decision Making - Medical Decision Making 73yo F with PMH of DCIS s/p lumpectomy/radition, HTN, HLD, hypothyroidism, lung nodules presenting with weakness and chest pain. DDX including but not limited to ACS, pre-syncope, electrolyte abnormality, anemia, PE Cardiac/Pre-syncope workup Labs EKG CTA Chest to r/o PE given patient's history of malignancy Fluids, Ofirmev, Zofran EKG: rate 82, QTc 439, NSR, LAD CBC WBC 7.6 K/mm3 (4.0-10.0) 04/29/19 18:15 RBC 4.45 M/mm3 (3.60-5.2) 04/29/19 18:15 Hgb 14.1 GM/dL (10.7-15.3) 04/29/19 18:15 Hct 42.4 % (32.4-45.2) 04/29/19 18:15 MCV 95.4 fl (80-96) 04/29/19 18:15 MCH 31.8 pg (25.7-33.7) 04/29/19 18:15 MCHC 33.3 g/dl (32.0-36.0) 04/29/19 18:15 RDW 12.6 % (11.6-15.6) 04/29/19 18:15 Plt Count 270 K/MM3 (134-434) D 04/29/19 18:15 MPV 7.8 fl (7.5-11.1) 04/29/19 18:15 Absolute Neuts (auto) 5.9 K/mm3 (1.5-8.0) 04/29/19 18:15 Neutrophils % 76.9 % (42.8-82.8) 04/29/19 18:15 Lymphocytes % 13.9 % (8-40) 04/29/19 18:15 Monocytes % 7.3 % (3.8-10.2) 04/29/19 18:15 Eosinophils % 1.2 % (0-4.5) 04/29/19 18:15 Basophils % 0.7 % (0-2.0) 04/29/19 18:15 Nucleated RBC % 0 % (0-0) 04/29/19 18:15 Retic Count 0.71 % (0.5-1.5) 04/29/19 18:15 No anemia or leukocytosis CMP Sodium 139 mmol/L (136-145) 04/29/19 18:15 Potassium 4.0 mmol/L (3.5-5.1) 04/29/19 18:15 Chloride 106 mmol/L (98-107) 04/29/19 18:15 Carbon Dioxide 29 mmol/L (21-32) 04/29/19 18:15 Anion Gap 4 MMOL/L (8-16) L 04/29/19 18:15 BUN 20.9 mg/dL (7-18) H 04/29/19 18:15 Creatinine 1.0 mg/dL (0.55-1.3) 04/29/19 18:15 Est GFR (CKD-EPI)AfAm 64.73 04/29/19 18:15 Est GFR (CKD-EPI)NonAf 55.85 04/29/19 18:15 Random Glucose 127 mg/dL (74-106) H 04/29/19 18:15 Calcium 10.4 mg/dL (8.5-10.1) H 04/29/19 18:15 Ferritin 78.6 ng/ml (8-388) 04/29/19 18:15 Total Bilirubin 0.2 mg/dL (0.2-1) 04/29/19 18:15 AST 16 U/L (15-37) 04/29/19 18:15 ALT 35 U/L (13-61) 04/29/19 18:15 Alkaline Phosphatase 107 U/L (45-117) 04/29/19 18:15 Creatine Kinase 100 U/L (26-192) 04/29/19 18:15 Troponin I < 0.02 ng/ml (0.00-0.05) 04/29/19 18:15 Total Protein 7.8 g/dl (6.4-8.2) 04/29/19 18:15 Albumin 4.1 g/dl (3.4-5.0) 04/29/19 18:15 Electrolytes unremarkable Elevated BUN Cr normal Tpn undetectable CT negative for PE: "TECHNIQUE: CT Angiogram (CTA) Chest: Thin cut axial images were obtained during the administration of non-ionic iodinated IV contrast. 44 cc Omnipaque. Coronal and sagittal thin and thick slice MIP reformatted images were also generated. FINDINGS: The soft tissues of the lower neck appear unremarkable. The thyroid glands are normal in size and contour. The tracheobronchial airways are patent. There is no evidence of axillary or mediastinal adenopathy. The lungs are clear without evidence of infiltrate, pleural effusion or pulmonary nodule. The heart size is normal. There are no coronary artery calcifications. The pulmonary arteries are patent to their fifth and sixth generation segmental and subsegmental branches, without evidence of filling defect or pulmonary embolus. The thoracic aorta ascending, arch and descending segments, great vessels arising from the aortic arch, and upper abdominal aorta exhibit scattered calcified atherosclerotic mural plaques but otherwise are normal in diameter and wall thickness, without evidence of aneurysm or dissection. Osseous structures exhibit grossly normal mineralization without evidence of lytic or sclerotic lesions. The thoracic vertebral body heights and alignments are well maintained. Upper abdominal organs appear normal. IMPRESSION: Unremarkable contrast enhanced chest CT. No evidence of pulmonary embolus, infiltrate, pleural effusion or pulmonary nodule. . One or more of the following dose reduction techniques were used: automated exposure control, adjustment of the mA and/or kV according to patient size, use of iterative reconstructive technique" Plan for admission for chest pain/pre-syncope 04/30/19 00:27 Discussed case with PINO Howell who accepted patient for telemetry observation under Dr. Manisha Howell 04/30/19 01:38 *DC/Admit/Observation/Transfer Diagnosis at time of Disposition: Weakness - Discharge Dispostion Condition at time of disposition: Guarded Decision to Admit order: Yes - Referrals - Patient Instructions - Post Discharge Activity
--- NOTE | 2019-04-30 02:33 | HP ---
CHIEF COMPLAINT: weakness s/p epistaxis, chest pain PCP: Manisha Howell HISTORY OF PRESENT ILLNESS: 73 year old female with PMHx of DCIS ER/UT+ right breast (s/p lumpectomy and radiation (11/2018), HTN, HLD, DM, hypothyroidism, osteoporosis, h/o of lung nodules arrived to ED for weakness for 3 days as per Patient she felt lightheaded and dizzy, had daily epistaxis (two episodes per day). Last night she started having chest pain, rated 6/10 intermittent , radiates to her L axilla and back. Patient denies history of DVT,PE, SOB, chills , fever, vomit, diarrhea and constipation. 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 Father had an HI at age 84 Social History: Smoking:no Alcohol:no Drugs: no Allergies: streptomycin Allergy (Severe, Verified 04/29/19 17:37) Difficulty Breathing HOME MEDICATIONS: Home Medications Medication Instructions Recorded Allopurinol [Zyloprim -] 100 mg PO DAILY 12/28/18 Amlodipine Besylate [Norvasc -] 5 mg PO DAILY 12/28/18 Levothyroxine [Synthroid -] 50 mcg PO DAILY 12/28/18 Simvastatin [Zocor] 10 mg PO HS 12/28/18 metFORMIN HCL [Metformin HCl] 500 mg PO DAILY 12/28/18 propRANOLol HCL [Inderal Xl] 120 mg PO DAILY 12/28/18 REVIEW OF SYSTEMS CONSTITUTIONAL: Absent: fever, chills, diaphoresis, +generalized weakness, dizziness HEENT: Absent: rhinorrhea, nasal congestion, throat pain, throat swelling, difficulty swallowing, + epistaxis CARDIOVASCULAR: +chest pain, denies irregular heart rate, lightheadedness, peripheral edema RESPIRATORY: Absent: cough, shortness of breath, dyspnea with exertion, orthopnea, wheezing, stridor, hemoptysis GASTROINTESTINAL: Absent: abdominal pain, abdominal distension, nausea, vomiting , diarrhea, constipation, melena, hematochezia GENITOURINARY: Absent: dysuria, frequency, urgency, hesitancy, hematuria, flank pain, genital pain MUSCULOSKELETAL: Absent: myalgia, arthralgia, joint swelling, back pain, neck pain SKIN: Absent: rash, itching, pallor NEUROLOGIC: Absent: headache, focal weakness or paresthesias, dizziness, unsteady gait, seizure, mental status changes, bladder or bowel incontinence PSYCHIATRIC: Absent: anxiety, depression, suicidal or homicidal ideation, hallucinations. PHYSICAL EXAMINATION Vital Signs - 24 hr 04/29/19 17:31 Temperature 97.8 F Pulse Rate 74 Respiratory 16 Rate Blood Pressure 133/64 O2 Sat by Pulse 97 Oximetry (%) GENERAL: Awake, alert, and fully oriented HEENT: NC/AT, EOMI, PERRLA NECK: Normal ROM, supple, no lymphadenopathy, JVD, or masses LUNGS: Breath sounds equal, clear to auscultation bilaterally. No wheezes, and no crackles HEART: Regular rate and rhythm, normal S1 and S2, no murmurs, rubs or gallops ABDOMEN: Soft, nontender, normoactive bowel sounds. No guarding, no rebound. No masses EXTREMITIES: Normal range of motion, no edema. No clubbing or cyanosis. No cords, erythema, or tenderness NEUROLOGICAL: Cranial nerves II through XII grossly intact. Normal speech, normal gait SKIN: Warm, Dry, normal turgor, no rashes or lesions noted. Laboratory Results - last 24 hr 04/29/19 04/29/19 04/29/19 18:15 18:15 18:15 WBC 7.6 RBC 4.45 Hgb 14.1 Hct 42.4 MCV 95.4 MCH 31.8 MCHC 33.3 RDW 12.6 Plt Count 270 D MPV 7.8 Absolute Neuts (auto) 5.9 Neutrophils % 76.9 Lymphocytes % 13.9 Monocytes % 7.3 Eosinophils % 1.2 Basophils % 0.7 Nucleated RBC % 0 Retic Count 0.71 PT with INR 11.40 INR 0.97 Sodium 139 Potassium 4.0 Chloride 106 Carbon Dioxide 29 Anion Gap 4 L BUN 20.9 H Creatinine 1.0 Est GFR (CKD-EPI)AfAm 64.73 Est GFR (CKD-EPI)NonAf 55.85 Random Glucose 127 H Calcium 10.4 H Ferritin 78.6 Total Bilirubin 0.2 AST 16 ALT 35 Alkaline Phosphatase 107 Creatine Kinase 100 Troponin I < 0.02 Total Protein 7.8 Albumin 4.1 ASSESSMENT/PLAN: 73 year old female with PMH of DCIS s/p lumpectomy/radition, HTN, HLD, hypothyroidism, DM,lung nodules arrived to ED for weakness and epistaxis for 3 days, Last night noted with chest pain, rated 6/10, intermittent and described as 'pressing' The pain is substernal and radiates to her left axilla and back. No shortness of breath or abdominal pain. ACS EKG: rate 82, QTc 439, NSR, LAD Tpn undetectable CT negative for PE - tele monitoing - follow up cardiology - iron profile HTN - continue with Norvasc - continue with propranolol hcl daily - monitor vitals HLD - f/u lipid profile - continue with zocor 10 mg at night hypothyrodism - followup TSH level - continue with synthroid 150 mcg daily DM - follow up HgA1c - monitor FSBS Problem List - Problem (1) ACS (acute coronary syndrome) Assessment/Plan: ACS EKG: rate 82, QTc 439, NSR, LAD Tpn undetectable CT negative for PE - tele monitoing - follow up cardiology - iron profile Code(s): I24.9 - ACUTE ISCHEMIC HEART DISEASE, UNSPECIFIED (2) HTN (hypertension) Assessment/Plan: HTN - continue with Norvasc - continue with propranolol hcl daily - monitor vitals Code(s): I10 - ESSENTIAL (PRIMARY) HYPERTENSION (3) HLD (hyperlipidemia) Assessment/Plan: HLD - f/u lipid profile - continue with zocor 10 mg at night Code(s): E78.5 - HYPERLIPIDEMIA, UNSPECIFIED (4) Hypothyroid Assessment/Plan: hypothyrodism - followup TSH level - continue with synthroid 150 mcg daily Code(s): E03.9 - HYPOTHYROIDISM, UNSPECIFIED (5) Diabetes Assessment/Plan: DM - follow up HgA1c - monitor FSBS Code(s): E11.9 - TYPE 2 DIABETES MELLITUS WITHOUT COMPLICATIONS (6) Chest pain Code(s): R07.9 - CHEST PAIN, UNSPECIFIED Qualifiers: Chest pain type: unspecified Qualified Code(s): R07.9 - Chest pain, unspecified Visit type - Emergency Visit Emergency Visit: Yes ED Registration Date: 04/30/19 Care time: The patient presented to the Emergency Department on the above date and was hospitalized for further evaluation of their emergent condition. - New Patient This patient is new to me today: Yes Date on this admission: 04/30/19 - Critical Care Critical Care patient: No
[2019-04-30] MEDS ORDERED: LEVOTHYROXINE NA 50 MCG TABLET (FP) PO SCH (07:00)
[2019-04-30] MEDS ORDERED: HEPARIN NA (PORCINE) 5,000 UNITS/ML 1ML VIAL SQ SCH (10:00)
[2019-04-30] MEDS ORDERED: amLODIPine BESYLATE 5 MG TABLET (FP) PO SCH (10:00)
[2019-04-30] MEDS ORDERED: SODIUM CHLORIDE NASAL SPRAY 44 ML BOTTLE NS PRN (11:12)
--- NOTE | 2019-04-30 11:12 | PN ---
Progress Note (short form) - Note Progress Note: see dc note
--- NOTE | 2019-04-30 11:41 | CON.CARD ---
Cardiology Consult (text) - Consultation Consultation Note: cc: dizzy, cp, epistaxis hpi: 73 f hx dm, htn, hld, breast ca s/p lumpectomy, hypothyroid here with dizzy, cp, epistaxis. Past day has noticed episodes of epistaxis. Also some mild dizziness at times, not positional. Has achey pain in back of head that moves down neck and into bl shoulders and axilla and bl chest. No anginal sxs, no palps loc pnd orthopnea le edema. pmh: per hpi psh: per hpi social: no tob fam: no premature cad, scd ros: per hpi; all others nl meds: Ambulatory Orders Allopurinol [Zyloprim -] 100 mg PO DAILY 12/28/18 Amlodipine Besylate [Norvasc -] 5 mg PO DAILY 12/28/18 Levothyroxine [Synthroid -] 50 mcg PO DAILY 12/28/18 Simvastatin [Zocor] 5 mg PO HS 12/28/18 metFORMIN HCL [Metformin HCl] 500 mg PO DAILY 12/28/18 propRANOLol HCL [Inderal Xl] 120 mg PO DAILY 12/28/18 pe: Vital Signs Period Temp Pulse Resp BP Sys/Barraza Pulse Ox Last 24 Hr 97.6 F-98.1 F 61-74 16-20 99-133/42-64 96-97 nad no jvd rrr s1s2 no mrg cta bl nl eff aaox3 no le e/c/c abd nt nd pos bs no jaundice diaphoresis pos dp pt no carotid bruits +chest wall tenderness Laboratory Last Values WBC 7.6 K/mm3 (4.0-10.0) 04/29/19 18:15 RBC 4.45 M/mm3 (3.60-5.2) 04/29/19 18:15 Hgb 14.1 GM/dL (10.7-15.3) 04/29/19 18:15 Hct 42.4 % (32.4-45.2) 04/29/19 18:15 MCV 95.4 fl (80-96) 04/29/19 18:15 MCH 31.8 pg (25.7-33.7) 04/29/19 18:15 MCHC 33.3 g/dl (32.0-36.0) 04/29/19 18:15 RDW 12.6 % (11.6-15.6) 04/29/19 18:15 Plt Count 270 K/MM3 (134-434) D 04/29/19 18:15 MPV 7.8 fl (7.5-11.1) 04/29/19 18:15 Absolute Neuts (auto) 5.9 K/mm3 (1.5-8.0) 04/29/19 18:15 Neutrophils % 76.9 % (42.8-82.8) 04/29/19 18:15 Lymphocytes % 13.9 % (8-40) 04/29/19 18:15 Monocytes % 7.3 % (3.8-10.2) 04/29/19 18:15 Eosinophils % 1.2 % (0-4.5) 04/29/19 18:15 Basophils % 0.7 % (0-2.0) 04/29/19 18:15 Nucleated RBC % 0 % (0-0) 04/29/19 18:15 Retic Count 0.71 % (0.5-1.5) 04/29/19 18:15 PT with INR 11.40 SEC (9.7-13.0) 04/29/19 18:15 INR 0.97 (0.83-1.09) 04/29/19 18:15 Sodium 139 mmol/L (136-145) 04/29/19 18:15 Potassium 4.0 mmol/L (3.5-5.1) 04/29/19 18:15 Chloride 106 mmol/L (98-107) 04/29/19 18:15 Carbon Dioxide 29 mmol/L (21-32) 04/29/19 18:15 Anion Gap 4 MMOL/L (8-16) L 04/29/19 18:15 BUN 20.9 mg/dL (7-18) H 04/29/19 18:15 Creatinine 1.0 mg/dL (0.55-1.3) 04/29/19 18:15 Est GFR (CKD-EPI)AfAm 64.73 04/29/19 18:15 Est GFR (CKD-EPI)NonAf 55.85 04/29/19 18:15 Random Glucose 127 mg/dL (74-106) H 04/29/19 18:15 Calcium 10.4 mg/dL (8.5-10.1) H 04/29/19 18:15 Ferritin 78.6 ng/ml (8-388) 04/29/19 18:15 Total Bilirubin 0.2 mg/dL (0.2-1) 04/29/19 18:15 AST 16 U/L (15-37) 04/29/19 18:15 ALT 35 U/L (13-61) 04/29/19 18:15 Alkaline Phosphatase 107 U/L (45-117) 04/29/19 18:15 Creatine Kinase 100 U/L (26-192) 04/29/19 18:15 Troponin I < 0.02 ng/ml (0.00-0.05) 04/29/19 18:15 Total Protein 7.8 g/dl (6.4-8.2) 04/29/19 18:15 Albumin 4.1 g/dl (3.4-5.0) 04/29/19 18:15 cxr: clear lungs cta chest: no pe stress echo 12/2018: no ischemic findings echo 12/2018: nl lv/rv, no sig valve path mibi 05/2017: nl mpi, nl lvef ecg: sr nl intervals no ischemic changes a/p: 73 f hx dm, htn, hld, breast ca s/p lumpectomy, hypothyroid here with dizzy, cp, epistaxis. cp: -atypical cp, seems msk -no signs acs. ecg benign. trop negx1 -recent echo and stress echo unremarkable -would check one more set ce's and if negative then ok for dc from cardiac pov htn: -cont home bb, ccb hld: -cont statin epistaxis: -consider ent eval
[2019-04-30] MEDS ORDERED: HEPARIN NA (PORCINE) 5,000 UNITS/ML 1ML VIAL ONE (12:04)
--- NOTE | 2019-04-30 16:06 | EKG ---
Test Reason : Blood Pressure : / mmHG Vent. Rate : 082 BPM Atrial Rate : 082 BPM P-R Int : 164 ms QRS Dur : 076 ms QT Int : 376 ms P-R-T Axes : 064 -43 025 degrees QTc Int : 439 ms NORMAL SINUS RHYTHM LEFT AXIS DEVIATION ABNORMAL ECG WHEN COMPARED WITH ECG OF 27-DEC-2018 15:38, NO SIGNIFICANT CHANGE WAS FOUND Confirmed by KENNY HO MD ([id number]) on 04/30/2019 4:05:31 PM Referred By: Confirmed By:KENNY HO MD
--- NOTE | 2019-04-30 17:03 | DS ---
Physical Examination Vital Signs: Vital Signs Temperature 98.1 F 04/30/19 16:00 Pulse Rate 69 04/30/19 16:00 Respiratory Rate 15 04/30/19 16:00 Blood Pressure 133/65 04/30/19 16:00 O2 Sat by Pulse Oximetry (%) 96 04/30/19 06:16 Constitutional: Yes: No Distress, Anxious HENT: Yes: Other (dried blood in right nostril) Cardiovascular: Yes: Regular Rate and Rhythm Respiratory: Yes: CTA Bilaterally Gastrointestinal: Yes: Normal Bowel Sounds, Soft. 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 Last night she started having chest pain, rated 6/10 intermittent , radiates to her L axilla and back. Patient denies history of DVT,PE, SOB, chills , fever, vomit, diarrhea and constipation. 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 Father had an TX at age 84 HOSPITAL COURSE Seen by Cardiology-- she had a normal stress echo this year cardiac enzymes x 3 negative Cardiac ospina stable No active epistaxis CTA chest- no PE, no masses, infiltrates, nodules Hb , HCT stable Pt stable for dc home PPLAN -- ENT eval as outpt for epistaxis --repeat labs-- check intact PTH for elevated calcium Condition: Improved - Instructions Referrals: Rajeev Amato MD [Staff Physician] - Disposition: HOME - Home Medications Comprehensive Discharge Medication List: Ambulatory Orders Allopurinol [Zyloprim -] 100 mg PO DAILY 12/28/18 Amlodipine Besylate [Norvasc -] 5 mg PO DAILY 12/28/18 Levothyroxine [Synthroid -] 50 mcg PO DAILY 12/28/18 Simvastatin [Zocor -] 5 mg PO HS 12/28/18 metFORMIN HCL [Metformin HCl] 500 mg PO DAILY 12/28/18 propRANOLol HCL [Inderal Xl] 120 mg PO DAILY 12/28/18 Sodium Chloride Nasal [place] [[place] [place] Nasal [place] -] 2 spray NS TID PRN #10 spray 04/30/19
[2019-04-30 18:55] VITALS: BP 118/66; PULSE 72; TEMP 98
[2019-04-30] MEDS ORDERED: ATORVASTATIN CA 10 MG TABLET (FP) PO SCH (22:00)
[2019-05-01 08:07] LABS: SERUM IRON SATURATION 19 % (15-55); TOTAL IRON BINDING CAPACITY 318 ug/dL (250-450)
== END 2019-04-30 20:42 | disposition home or self-care (01) ==
LOC: JER 17:19 → JERBED 04-30 01:39
PROVIDERS: ADMIT Internal Medicine; ATTEND Internal Medicine
PROC: 3E033NZ Introduction of Analgesics, Hypnotics, Sedatives into Peripheral Vein, Percutaneous Approach (ICD-10-PCS; principal; 2019-04-30)
PROC: 3E0337Z Introduction of Electrolytic and Water Balance Substance into Peripheral Vein, Percutaneous Approach (ICD-10-PCS; 2019-04-30)
PROC: 3E033GC Introduction of Other Therapeutic Substance into Peripheral Vein, Percutaneous Approach (ICD-10-PCS; 2019-04-30)
DX: R07.89 Other chest pain (principal); I24.9 Acute ischemic heart disease, unspecified; I10 Essential (primary) hypertension; E78.5 Hyperlipidemia, unspecified; E89.0 Postprocedural hypothyroidism; M81.0 Age-related osteoporosis without current pathological fracture; R53.1 Weakness; Z79.84 Long term (current) use of oral hypoglycemic drugs; Z85.3 Personal history of malignant neoplasm of breast; Z17.0 Estrogen receptor positive status [ER+]; Z92.3 Personal history of irradiation
CPT/HCPCS: 36415; 71045-TC-FY; 71275-TC; 80053; 82550; 82728; 83540; 83550; 84484; 85025; 85044; 85610; 93005; 93010; 96361; 96374; 96375; 99285-25; G0378; J0131; J7030